=== PATIENT | female | born 1960 | race Caucasian/White ===

== ENCOUNTER 2018-10-07 18:38 | Inpatient (IN) | payer BC ==
[~2018-10-07] VITALS: Ht 162.6 cm; Wt 115.7 kg
[~2018-10-07 18:38] MED LIST: ABAT125S SQ; ACET-685 PO; ALBU2.5V12 NEB; AMOX1TAB12 PO; ASPI-484 PO; AZIT250T14 PO; BUDE0.5A3 IH; CERT400K SQ; CLAR500T3 PO; GABA300C10 PO; HYDR-3468 PO; HYDR200T5 PO; Hydrocodone/Acetaminophen PO; Ipratropium/Albuterol Sulfate IH; LEVO500T51 PO; META800T PO; PRED20TA PO; PRED5TAB17 PO; SULF500T36 PO
[2018-10-07] MEDS ORDERED: DUONEB 0.5 MG-3 MG/3 ML SOLN IH STA (18:56)
[2018-10-07] MEDS ORDERED: LASIX PO STA (18:56)
--- NOTE | 2018-10-07 18:59 | ER.PDOC ---
General Chief Complaint: Requesting Medical Care Stated Complaint: LOW O2 LEVEL Time seen by MD: 19:00 Source: patient Exam Limitations: no limitations History of Present Illness Timing/Duration: 24 hours Severity: moderate Activities at Onset: activity/exertion, rest Prior Episodes/Possible Cause: occasional episodes Modifying Factors: improves with coughing, improves with lying down, improves with oxygen, improves with rest Associated Symptoms: cough, edema Prior symptoms/Treatment: Similar symptoms previous Allergies: Coded Allergies: iodine (Verified Allergy, Severe, EXTREME HEAT, SWELLING, SNEEZING, 11/13/17 ) IV INJECTION 1975 PT VOICED BEING ABLE TO EAT SHELLFISH sulfadiazine (Verified Allergy, Severe, DIFFICULTY BREATHING, LOW O2 STATS , 11/13/17) Home Meds Active Scripts Budesonide (PULMICORT) 0.5 Mg/2 Ml Ampul.neb, 0.5 MG IH BID, #30 Prov:OZZIE LEUNG MD 10/17/14 Reported Medications Hydroxychloroquine Sulfate (HYDROXYCHLOROQUINE SULFATE) 200 Mg Tablet, 1 TAB PO BID, #180 TAB 1 Refill 10/07/18 Budesonide (BUDESONIDE) 0.5 Mg/2 Ml Ampul.neb, 1 VIAL NEB BID, #120 MILLILITER 3 Refills 10/07/18 Lansoprazole (LANSOPRAZOLE) 30 Mg Capsule.dr, 1 CAP PO DAILY, #30 CAP 5 Refills 10/07/18 Metaxalone (SKELAXIN) 800 Mg Tablet, 1 TAB PO TID, #30 TAB 10/07/18 Gabapentin (GABAPENTIN) 300 Mg Capsule, 1 CAP PO TID, #90 CAP 5 Refills 10/07/18 Aspirin (ASPIR 81) 81 Mg Tablet.dr, 1 TAB PO DAILY, #30 TAB 11/17/17 Albuterol Sulfate (ALBUTEROL SULFATE) 2.5 Mg/0.5 Ml Vial.neb, 1 VIAL NEB Q6 PRN for SHORTNESS OF BREATH, #120 VIAL 5 Refills 11/13/17 Certolizumab Pegol (CIMZIA) 400 Mg Kit, 200 MG SQ EVERY 28 DAYS, KIT 11/13/17 Prednisone (PREDNISONE) 5 Mg Tab.ds.pk, 5 MG PO DAILY24 11/13/17 Metaxalone (METAXALONE) 800 Mg Tablet, 800 MG PO TID PRN for PAIN, TABLET 05/10/14 Discontinued Reported Medications Gabapentin (GABAPENTIN) 300 Mg Capsule, 1 CAP PO DAILY24, #90 CAP 5 Refills 11/13/17 Hydroxychloroquine Sulfate (HYDROXYCHLOROQUINE SULFATE) 200 Mg Tablet, 1 TAB PO BID, #180 TAB 1 Refill 05/10/14 Past Medical History LMP (females 10-50): postmenopause Reviewed Nursing Reviewed: Vital Signs, Abn. 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 NML as Tested, No Motor/Sensory Deficits, Alert, Normal Mood/Affect, Oriented x 3 Skin: Normal Color, Warm/Dry Lymphatic: No Adenopathy Results/Orders Results/Orders Laboratory Tests Test 10/07/18 19:05 White Blood Count 8.9 10^3/uL (4.5-11.0) Red Blood Count 5.30 10^6/uL (4.00-5.20) Hemoglobin 16.5 g/dL (12.0-15.0) Hematocrit 48.6 % (36.0-46.0) Mean Corpuscular Volume 91.7 fL (78-100) Mean Corpuscular Hemoglobin 31.1 pg (26-34) Mean Corpuscular Hemoglobin Concent 34.0 g/dL (33-37) Red Cell Distribution Width 15.0 % (11.5-14.5) Platelet Count 263 10^3/uL (150-400) Mean Platelet Volume 9.4 fL (7.8-11.0) Neutrophils (%) (Auto) 41.2 % (41.0-85.0) Lymphocytes (%) (Auto) 43.0 % (24.0-44.0) Monocytes (%) (Auto) 11.3 % (5.0-12.0) Neutrophils # (Auto) 3.7 10^3/uL (1.8-7.7) Lymphocytes # (Auto) 3.8 10^3/uL (1.0-4.8) Monocytes # (Auto) 1.0 10^3/uL (0.3-0.8) Absolute Immature Granulocyte (auto 0.01 10^3 u/L (0-2) Eosinophils % 3.7 % (0.0-5.0) Basophils % 0.7 % (0.0-0.2) Basophils # 0.1 10^3/uL (0.0-0.1) Eosinophil Count 0.3 10^3/uL (0.0-0.2) Sodium Level 137 mmol/L (132-145) Potassium Level 3.9 mmol/L (3.6-5.2) Chloride Level 102.0 mmol/L (96-109) Carbon Dioxide Level 26.3 mmol/L (20.0-32) Anion Gap 12.6 Blood Urea Nitrogen 14 mg/dL (7-18) Creatinine 0.70 mg/dL (0.59-1.40) Estimated GFR () 105.1 (>/=60) BUN/Creatinine Ratio 20.0 Glucose Level 89 mg/dL (70-110) Calcium Level 9.0 mg/dL (8.4-10.5) Total Bilirubin 0.4 mg/dL (0.2-1.0) Aspartate Amino Transf (AST/SGOT) 19 U/L (0-35) Alanine Aminotransferase (ALT/SGPT) 29 U/L (12-78) Alkaline Phosphatase 76 U/L (50-136) Total Creatine Kinase 61 U/L (26-192) Troponin I < 0.02 ng/mL (0.00-0.05) Pro-B-Type Natriuretic Peptide 31 pg/mL (0-125) Total Protein 7.8 g/dL (6.4-8.2) Albumin 3.4 g/dL (3.4-5.0) Globulin 4.4 Percent Immature Gran (Cell Imm) 0.10 % (0.00-0.50) Helicobacter pylori Screen NEGATIVE (NEGATIVE) Administered Medications Medications (Trade) Dose Ordered Sig/Tristan Route PRN Reason Start Time Stop Time Status Last Admin Dose Admin Albuterol/ Ipratropium (Duoneb 0.5 Mg-3 Mg/3 ml Soln) 3 ml STAT STAT IH 10/07/18 18:56 10/07/18 18:58 DC 10/07/18 19:21 Dexamethasone Sodium Phosphate (Decadron) 10 mg STAT STAT IV 2/27/19 19:25 10/07/18 19:27 DC 10/07/18 20:20 Diphenhydramine HCl (Benadryl) 50 mg STAT STAT IV 10/07/18 19:44 10/07/18 19:45 DC 10/07/18 20:20 Furosemide (Lasix) 20 mg STAT STAT IV 10/07/18 20:07 10/07/18 20:08 DC 10/07/18 20:21 Progress Progress discussed case with dr pedroza EKG/XRAY/CT/US EKG: NSR EKG Comments: 74 Course Vitals & review Data Vital Sign - Last 24 Hours 10/07/18 10/07/18 10/07/18 10/07/18 18:41 18:41 19:22 19:26 Temp 98.9 98.9 98.9 98.9 Pulse 86 86 87 78 Resp 24 24 18 18 Pulse Ox 89 89 97 O2 Delivery Room Air 10/07/18 10/07/18 10/07/18 10/07/18 20:21 21:54 22:00 22:01 Pulse 83 79 Resp 22 18 20 B/P (MAP) 124/67 Pulse Ox 94 94 O2 Delivery Nasal Canula O2 Flow Rate 2.00 10/07/18 10/07/18 22:03 22:11 Pulse 81 81 Resp 20 20 Pulse Ox 93 93 O2 Delivery Nasal Cannula O2 Flow Rate 2.00 Laboratory Tests Test 10/07/18 19:05 White Blood Count 8.9 10^3/uL Red Blood Count 5.30 10^6/uL Hemoglobin 16.5 g/dL Hematocrit 48.6 % Mean Corpuscular Volume 91.7 fL Mean Corpuscular Hemoglobin 31.1 pg Mean Corpuscular Hemoglobin Concent 34.0 g/dL Red Cell Distribution Width 15.0 % Platelet Count 263 10^3/uL Mean Platelet Volume 9.4 fL Neutrophils (%) (Auto) 41.2 % Lymphocytes (%) (Auto) 43.0 % Monocytes (%) (Auto) 11.3 % Neutrophils # (Auto) 3.7 10^3/uL Lymphocytes # (Auto) 3.8 10^3/uL Monocytes # (Auto) 1.0 10^3/uL Absolute Immature Granulocyte (auto 0.01 10^3 u/L Eosinophils % 3.7 % Basophils % 0.7 % Basophils # 0.1 10^3/uL Eosinophil Count 0.3 10^3/uL Sodium Level 137 mmol/L Potassium Level 3.9 mmol/L Chloride Level 102.0 mmol/L Carbon Dioxide Level 26.3 mmol/L Anion Gap 12.6 Blood Urea Nitrogen 14 mg/dL Creatinine 0.70 mg/dL Estimated GFR () 105.1 BUN/Creatinine Ratio 20.0 Glucose Level 89 mg/dL Calcium Level 9.0 mg/dL Total Bilirubin 0.4 mg/dL Aspartate Amino Transf (AST/SGOT) 19 U/L Alanine Aminotransferase (ALT/SGPT) 29 U/L Alkaline Phosphatase 76 U/L Total Creatine Kinase 61 U/L Troponin I < 0.02 ng/mL Pro-B-Type Natriuretic Peptide 31 pg/mL Total Protein 7.8 g/dL Albumin 3.4 g/dL Globulin 4.4 Percent Immature Gran (Cell Imm) 0.10 % Helicobacter pylori Screen NEGATIVE Departure Time of Disposition: 20:05 Disposition: 09 ADMITTED INPATIENT Impression: Primary Impression: Respiratory failure with hypoxia Condition: Critical Referrals: KATINA FRIEDMAN ESCAPEMENT MAKER (PCP) PRIMARY CARE PROVIDER Duration or Time Spent with Pa: 25 RADHA MONTES MD Oct 07, 2018 18:59 SCOTT BLANCHARD MD Oct 07, 2018 22:05
[2018-10-07 19:10] LABS: BASOPHIL # 0.1 10^3/uL (0.0-0.1); BASOPHIL % 0.7 % (0.0-0.2); EOSINOPHIL # 0.3 10^3/uL (0.0-0.2); EOSINOPHIL % 3.7 % (0.0-5.0); HEMOGLOBIN 16.5 g/dL (12.0-15.0); LYMPHOCYTES # 3.8 10^3/uL (1.0-4.8); MEAN CELL HGB 31.1 pg (26-34); MEAN CORP VOLUME 91.7 fL (78-100); MEAN PLATELET VOLUME 9.4 fL (7.8-11.0); MONOCYTES % 11.3 % (5.0-12.0); NEUTROPHIL # 3.7 10^3/uL (1.8-7.7); NEUTROPHILS % 41.2 % (41.0-85.0); WHITE BLOOD CELL 8.9 10^3/uL (4.5-11.0)
[2018-10-07] MEDS ORDERED: DUONEB 0.5 MG-3 MG/3 ML SOLN IH ONE ×2 (19:15→21:54)
[2018-10-07] MEDS ORDERED: DECADRON IV STA (19:25)
--- NOTE | 2018-10-07 19:26 | DIREP ---
PROCEDURE:CHEST 2 VIEWS COMPARISON:[facility], CR, CHEST 2 VIEW, 09/11/2011, 03:57 PM. [facility], CR, CHEST 2 VIEW, 05/09/2014, 02:14 PM. [facility], [place], XRAY CHEST 2 VWS, 11/13/2017, 04:13 PM. INDICATIONS:dyspnea, cough, rales FINDINGS: LUNGS/PLEURA:Interstitial prominence throughout. Findings similar to previous, no focal consolidation VASCULATURE:Normal. Unremarkable pulmonary vasculature. CARDIAC:Normal. No cardiac silhouette abnormality or cardiomegaly. MEDIASTINUM:Normal. No visible mass or adenopathy. BONES:Normal. No fracture or visible bony lesion. OTHER:Negative. CONCLUSION:Chronic interstitial prominence, likely due to mild fibrosis. No focal consolidation, or acute process identified. Mild edema, or subtle atypical pneumonia cannot be excluded given the underlying pattern Dictated by: González Martell MD on 10/07/2018 at 07:24 PM
[2018-10-07 19:38] LABS: ALANINE AMINOTRANSFERASE(ML) 29 U/L (12-78); ALKALINE PHOSPHATASE 76 U/L (50-136); ASPARTATE AMINO TRANSFERASE 19 U/L (0-35); CARBON DIOXIDE 26.3 mmol/L (20.0-32); GLUCOSE 89 mg/dL (70-110)
--- NOTE | 2018-10-07 19:38 | PCM.EKG ---
[facility] Test Date: 2018-10-07 Test Time: 19:30:31 Pat Name: FIDELIA PATINO Department: Room: Gender: F Map Clerk: STEPHANIE : 1960 Requested By: RADHA MONTES Order Number: [id number] Reading MD: Milton Huitron Measurements Intervals Finley Rate: 74 P: 25 VT: 176 QRS: 70 QRSD: 76 T: 54 QT: 414 QTc: 459 Interpretive Statements Normal sinus rhythm Normal ECG No previous ECG available for comparison Electronically Signed On 10-07-2018 22:23:51 MANAGER INTERNAL by Milton Huitron Please click the below link to view image of tracing.
[2018-10-07] MEDS ORDERED: BENADRYL IV STA (19:44)
[2018-10-07] MEDS ORDERED: LASIX ONE (20:07)
[2018-10-07] MEDS ORDERED: LASIX IV STA (20:07)
[2018-10-07] MEDS ORDERED: BENADRYL ONE (20:07)
[2018-10-07] MEDS ORDERED: DECADRON ONE (20:08)
--- NOTE | 2018-10-07 21:48 | DIREP ---
PROCEDURE:CT PULMONARY ANGIOGRAM TECHNIQUE:Following the intravenous administration of contrast material, axial cuts were obtained through the chest. Multiplanar / 3-D reconstructions are provided. Pulmonary arterial contrast opacification was satisfactory. The images were viewed at lung and soft tissue settings. Delayed images to the abdomen pelvis and thighs are submitted COMPARISON:[facility], CT, CT CHEST W/O, 01/16/2015, 01:57 PM. INDICATIONS:dyspnea with hx of pe FINDINGS: PULMONARY ARTERIES:Nondiagnostic bolus. LUNGS:Minimal regions of dependent atelectasis. The central airways are patent. Mild regions of pulmonary fibrosis. Stable peripheral nodules, largest measuring 6 mm, stable when compared with previous examination CARDIAC:Normal size heart and normal pulmonary vascularity. THYROID:Normal. THORACIC AORTA:Normal. MEDIASTINUM:Normal. PLEURA:Normal. BONES:Normal. Cholecystectomy. No focal liver lesions. Spleen , pancreas and adrenals are unremarkable. Atherosclerotic changes of the infrarenal aorta without aneurysm. Hysterectomy. Scattered sigmoid diverticula. No free air. No bowel obstruction. No abscess. Hysterectomy No pelvic or thigh DVT is seen unremarkable. CONCLUSION:No pulmonary emboli. No pelvic or thigh DVT. Stable interstitial lung disease with regions of fibrosis, stable nodules. Superimposed mild dependent atelectasis. Dictated by: González Martell MD on 10/07/2018 at 09:41 PM
[2018-10-07 21:54] VITALS: BP 127/44
--- NOTE | 2018-10-07 22:02 | NUR ---
KAVITHA BLANCHARD ON PHONE WITH DR. PLUMMER
[2018-10-07] MEDS ORDERED: GABA300C10 PO (22:17)
[2018-10-07] MEDS ORDERED: [UNRECOGNIZED DRUG - CODE] PO (22:17)
[2018-10-07] MEDS ORDERED: HYDR200T5 PO (22:17)
[2018-10-07] MEDS ORDERED: LANS30CA PO (22:17)
[2018-10-07] MEDS ORDERED: BUDE0.5A NEB (22:17)
[2018-10-07 23:19] VITALS: BP 124/42
[2018-10-08 04:28] VITALS: BP 116/65
[2018-10-08] MEDS: DUONEB 0.5 MG-3 MG/3 ML SOLN IH SCH ×3 (09:00→20:40)
--- NOTE | 2018-10-08 09:00 | PCM.HP ---
HISTORY & PHYSICAL HISTORY & PHYSICAL DATE OF ADMISSION: CHIEF COMPLAINT: 57 yo female with severe RA and SHAZIA comes in with several weeks of progressive SOB and hypoxia, much worse with exertion. She has Interstitial Lung Disease secondary to her RA She takes Golimumab infusions every several months at her [employer] [facility] office in [place]. She has noticed a correlation between these infusions, and getting more SOB within 2 weeks of the drug being administered. She has wheezing, fatigue, and severe SOB with any exertion. She has been checking her pulse oximetry over the last week and her level decreases into the 70's whenever she exerts herself. She came to [facility] yesterday for much worse SOB, wheezing, and decreased O2 level. CT also shows possible atypical pneumonia. Admit for IV corticosteroids, IV Azithromycin, Duoneb Tx, Pulmonary hygiene. H&P #[id number] HISTORY OF PRESENT ILLNESS: ALLERGIES: CURRENT MEDICATIONS: PAST MEDICAL HISTORY: SOCIAL HISTORY: FAMILY HISTORY: REVIEW OF SYSTEMS: PHYSICAL EXAMINATION: GENERAL: VITAL SIGNS: HEENT: NECK: LUNGS: HEART: ABDOMEN: EXTREMITIES: NEUROLOGIC: LABORATORY DATA: IMPRESSION: CARE PLAN: JARRETT PLUMMER MD Oct 08, 2018 09:00
[2018-10-08 09:15] VITALS: BP 116/63
[2018-10-08] MEDS ORDERED: ALBU2.5V12 NEB (09:20)
[2018-10-08] MEDS: PROTONIX PO SCH (09:21)
[2018-10-08] MEDS: SOLU-MEDROL IV SCH ×4 (09:21→20:58)
[2018-10-08] MEDS ORDERED: DUONEB 0.5 MG-3 MG/3 ML SOLN IH ONE (09:38)
--- NOTE | 2018-10-08 09:50 | NUR ---
DISCHARGE PLAN CASE MANAGEMENT VISITED WITH PATIENT CONCERNING DISCHARGE PLAN AND NEEDS. LIVES AT HOME WITH . INDEPENDENT OF ADLS. HAS HOME OXYGEN THROUGH [employer]. DENIES NEED FOR DME. REFUSED HOME HEALTH AND OUTPATIENT SERVICES. DR. PLUMMER IS PCP. HAS FINANCIAL ABILITY TO PAY FOR MEDICATIONS UPON DISCHARGE IF NEEDED. DISCHARGE GOAL IS TO DISCHARGE HOME WITH AND CONTINUE SELF CARE. DENIES FURTHER NEEDS AT THIS TIME.
--- NOTE | 2018-10-08 11:50 | HPH ---
ADMIT DATE: CHIEF COMPLAINT: Shortness of breath and hypoxia. HISTORY OF PRESENT ILLNESS: This is a 57-year-old female with multiple medical problems including rheumatoid arthritis, chronic immunosuppression, and interstitial lung disease who presents to the Emergency Room at [facility] for worsening shortness of breath and low oxygen levels. She has had rheumatoid arthritis for many years and has been on multiple different medications for this. Most recently, she is on golimumab infusions that she gets every several months. She had previously felt like she was tolerating these infusions well. However, over the last two infusions, she has noticed that approximately 2 weeks after the infusion, she develops slowly progressive shortness of breath that is worse than her baseline. She has interstitial lung disease as a function of her rheumatoid arthritis and has seen a seasoner hand in the past, but currently does not have one. She has been on oxygen at nighttime for several years, but has not needed it during the day. She has noticed that after her infusions, she gets much worsening shortness of breath with exertion and her oxygen level drops to the 70s on pulse oximeter once she sits down from exertion. She has been forced to wear her oxygen more during the day, but does not know how much she needs to wear at those times and is not always able to check her pulse oximeter level. She is a current smoker and states she smokes 5-10 cigarettes per day. She states she takes her oxygen off during these times. She has also been told she may have obstructive sleep apnea, but she has never been formally evaluated for this. PAST MEDICAL HISTORY: 1. Interstitial lung disease. 2. Rheumatoid arthritis. 3. Chronic immunosuppression. 4. Gastroesophageal reflux disease. 5. Hypertension. 6. Peripheral neuropathy. 7. Morbid obesity. 8. Reactive airway disease/chronic obstructive pulmonary disease. 9. Chronic lower extremity edema. MEDICATIONS: See admit medication reconciliation form. PAST SURGICAL HISTORY: Reviewed. SOCIAL HISTORY: Alcohol -- None. Tobacco -- one half pack per day x 45 years. Denies recreational drugs. The patient lives with her in [place]. She is retired. ALLERGIES: IODINE and SULFADIAZINE. REVIEW OF SYSTEMS: GENERAL: Overall increase in weakness, fatigue and malaise over the last several weeks. CARDIAC: Denies chest pain, orthopnea, PND or palpitations. RESPIRATORY: Shortness of breath worsening and slight worsening of cough as well. No hemoptysis. No history of tuberculosis. GASTROINTESTINAL: No nausea, vomiting, diarrhea or constipation. No history of hepatitis. GENITOURINARY: Denies dysuria, frequency, hematuria or nocturia. HEMATOLOGIC: No easy bleeding or bruising. ENDOCRINE: No recent weight loss or weight gain. No temperature intolerance. NEUROLOGIC: Denies headache, paresthesias or dizziness. MUSCULOSKELETAL: Overall increase in weakness of muscle groups. PSYCHIATRIC: Denies depression or anxiety. OBJECTIVE: VITAL SIGNS: Temperature 98.9, pulse 86, respirations 24, pulse oximeter 89% on room air. GENERAL: This is a morbidly obese female in no acute distress. She has a pickwickian body habitus. HEENT: Atraumatic, normocephalic. Sclerae are clear and anicteric. Oral mucosa is moist. NECK: Neck is very short, supple, nontender, no nodes felt. No bruits. No adenopathy. CHEST: Decreased breath sounds bilaterally with mild crackles at bilateral bases. HEART: Regular rate and rhythm without murmurs, S3 or S4. ABDOMEN: Soft, nontender, nondistended. Positive bowel sounds. No masses felt. EXTREMITIES: Warm and well perfused without evidence of edema, cyanosis or clubbing. Mild ulnar deviation of both hands. NEUROLOGIC: Cranial nerves 2-12 are grossly intact and symmetric. SKIN: Intact. LABORATORY DATA: WBC 8.9, hemoglobin 16.5, hematocrit 48.6, platelets 263. Sodium 137, potassium 3.9, chloride 102, BUN 14, creatinine 0.7. Glucose 89, calcium 9.0, total bilirubin 0.4, AST 19, ALT 29, CK 61. Troponin I less than 0.02. ProBNP 31. IMAGING: Chest x-ray -- "chronic interstitial prominence, likely due to mild fibrosis, mild edema, atypical pneumonia cannot be excluded." CTA -- "no pulmonary emboli. Interstitial lung disease with fibrosis, stable nodules, atelectasis." IMPRESSION: 1. Shortness of breath. 2. Hypoxia. 3. 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 4. Possible atypical pneumonia. 5. Erythrocytosis. 6. Morbid obesity. 7. Continued tobacco use. 8. Chronic obstructive pulmonary disease. 9. Rheumatoid arthritis. 10. Hypertension. PLAN: 1. The patient is admitted to [facility] for further evaluation and management. 2. We will start her on albuterol and ipratropium nebulizer treatments as well as intravenous corticosteroids with methylprednisolone, which should help the autoimmune component of her lung disease. She needs to remain on oxygen 24 hours a day at this point as this is the only thing that is proven to help with interstitial lung disease. 3. Possible atypical pneumonia, which would also explain worsening findings, so we will start IV azithromycin every 24 hours. 4. The patient's smoking is certainly contributing to this and I counseled her extensively on smoking cessation. Nicotine patch if needed. Chronic obstructive pulmonary disease thus definitely a component, but she will be getting all appropriate treatment as mentioned above. 5. She absolutely needs a sleep study done as an outpatient once she is over this acute episode. 6. Resume previous home medications. 7. Deep venous thrombosis and stress ulcer prophylaxis. 8. Needs aggressive pulmonary hygiene with incentive spirometer and increased ambulation. Santos Blanco MD DR: MULUGETA/carmen JOB# [id number]
[2018-10-08] MEDS ORDERED: NS 250ML 250 ML IV ONE (12:25)
[2018-10-08] MEDS: ZITHROMAX 500 MG in NS 250ML 250 ML IV SCH (12:35)
[2018-10-08] MEDS ORDERED: DUONEB 0.5 MG-3 MG/3 ML SOLN IH SCH (15:00)
[2018-10-08 15:28] VITALS: BP 117/61
[2018-10-08 19:42] VITALS: BP 100/59
[2018-10-08] MEDS: PLAQUENIL PO SCH (20:58)
[2018-10-08] MEDS: NEURONTIN PO SCH (20:58)
[2018-10-08] MEDS ORDERED: SKELAXIN PO SCH (21:00)
[2018-10-08] MEDS: NICOTINE 21MG PATCH TD SCH (22:20)
--- NOTE | 2018-10-08 22:24 | NUR ---
Nicotine patch Placed to the right upper arm TD
[2018-10-08 23:09] VITALS: BP 131/62
[2018-10-09] MEDS: SOLU-MEDROL IV SCH ×4 (03:43→21:08)
[2018-10-09 03:55] VITALS: BP 118/65
[2018-10-09 05:12] LABS: HEMOGLOBIN 15.5 g/dL (12.0-15.0); MEAN CELL HGB 30.7 pg (26-34); MEAN CORP VOLUME 92.9 fL (78-100); MEAN PLATELET VOLUME 9.8 fL (7.8-11.0); RED CELL DISTRIBUTION WIDTH 14.7 % (11.5-14.5); WHITE BLOOD CELL 18.3 10^3/uL (4.5-11.0)
[2018-10-09 05:45] LABS: CALCIUM 8.9 mg/dL (8.4-10.5); CARBON DIOXIDE 28.4 mmol/L (20.0-32)
--- NOTE | 2018-10-09 07:07 | PRM.PN ---
Subjective Subjective Date: Oct 09, 2018 Time: 07:06 Subjective Stable overnight. Intermittent coughing. SOB slowly improving. Had more problems overall with SOB however with exertion. Tried walking in [place] and got very lightheaded. O2 dropped to the 60's. Patient History: Asthma 32 MOTHER, , Age:75 33 FATHER, , Age:73 Bone cancer G8 BROTHER, , Age:68 Cerebrovascular disorder MATERNAL GRANDMOTHER, Chronic obstructive pulmonary disease 32 MOTHER, , Age:75 33 FATHER, , Age:73 FH: colon cancer G8 BROTHER, , Age:68 FH: obesity G8 BROTHER, , Age:42 Hypertension 32 MOTHER, , Age:73 G8 SISTER No known health problems 19 CHILD 19 CHILD No Family History of: Alzheimer's disease Congestive heart failure Diabetes insipidus Diabetes mellitus Parkinson's disease VTE VTE Risk Total Score: 2 VTE Risk Score VTE Risk: Score 0-1 = Low Risk (Aggressive mobilization; early ambulation; no VTE prophylaxis required) Score 2: Moderate Risk (Intermittent/Pneumatic Compression Device OR Lovenox/Heparin/Coumadin) Score 3-4: High Risk (Intermittent/Pneumatic Compression Device AND Lovenox/Heparin/Coumadin) Score > or =5: Highest Risk (Intermittent/Pneumatic Compression Device AND Lovenox/Heparin/Coumadin) Review of Systems Constitutional: Weakness; No: Fever, Chills, Sweats, Malaise, Other Respiratory: Cough, Shortness of breath, SOB with excertion; No: Dry, Wheezing , Hemoptysis, Pleuritic Pain, Sputum, Wheezing, Other Cardiovascular: No: Chest Pain, Palpitations, Orthopnea, Paroxysmal Noc. Dyspnea, Edema, Lt Headedness, Other Gastrointestinal: No: Nausea, Vomiting, Abdominal Pain, Diarrhea, Constipation , Melena, Hematochezia, Other Genitourinary: No Dysuria, No Frequency, No Incontinence, No Hematuria, No Retention, No Other Neurological: Weakness; No: Numbness, Incoordination, Change in speech, Confusion, Seizures, Other Allergies: Coded Allergies: iodine (Verified Allergy, Severe, EXTREME HEAT, SWELLING, SNEEZING, 11/13/17 ) IV INJECTION 1974 PT VOICED BEING ABLE TO EAT SHELLFISH sulfadiazine (Verified Allergy, Severe, DIFFICULTY BREATHING, LOW O2 STATS , 11/13/17) Scheduled Albuterol Sulfate (Albuterol Sulfate), 1 VIAL NEB BID, (Reported) Aspirin (Aspir 81), 1 TAB PO DAILY, (Reported) Budesonide (Pulmicort), 0.5 MG IH BID Budesonide (Budesonide), 1 VIAL NEB BID, (Reported) Gabapentin (Gabapentin), 1 CAP PO TID, (Reported) Hydroxychloroquine Sulfate (Hydroxychloroquine Sulfate), 1 TAB PO BID, (Reported ) Lansoprazole (Lansoprazole), 1 CAP PO DAILY, (Reported) Scheduled PRN Albuterol Sulfate (Albuterol Sulfate), 1 VIAL NEB Q6 PRN for SHORTNESS OF BREATH , (Reported) Metaxalone (Metaxalone), 800 MG PO TID PRN for PAIN, (Reported) Discontinued Medications Certolizumab Pegol (Cimzia), 200 MG SQ EVERY 28 DAYS, (Reported) Discontinued Reason: No Longer Taking Gabapentin (Gabapentin), 1 CAP PO DAILY24, (Reported) Discontinued Reason: Cancel Hydroxychloroquine Sulfate (Hydroxychloroquine Sulfate), 1 TAB PO BID, (Reported ) Discontinued Reason: Discontinue Prednisone (Prednisone), 5 MG PO DAILY24, (Reported) Discontinued Reason: No Longer Taking Objective Vitals and I/O Vital Sign - Last 24 Hours 10/08/18 10/08/18 10/08/18 10/08/18 08:34 09:15 09:43 09:47 Temp 98.5 98.5 Pulse 72 75 76 63 Resp 14 18 16 14 B/P (MAP) 116/63 (80) Pulse Ox 91 95 94 O2 Delivery Nasal Canula O2 Flow Rate 2.50 2.00 FiO2 30 10/08/18 10/08/18 10/08/18 10/08/18 11:12 14:18 14:22 15:28 Temp 98.3 98.3 Pulse 82 88 87 Resp 14 14 18 B/P (MAP) 117/61 (79) Pulse Ox 93 93 O2 Delivery Nasal Cannula Nasal Canula O2 Flow Rate 2.00 2.00 10/08/18 10/08/18 10/08/18 10/08/18 18:45 19:42 19:43 20:40 Temp 97.8 97.8 Pulse 96 66 60 Resp 18 18 18 B/P (MAP) 100/59 (73) Pulse Ox 96 93 O2 Delivery Nasal Cannula Nasal Canula Nasal Cannula O2 Flow Rate 2.50 2.50 2.50 FiO2 30 10/08/18 10/08/18 10/09/18 20:47 23:09 03:55 Temp 97.6 98.5 97.6 98.5 Pulse 60 76 78 Resp 18 20 18 B/P (MAP) 131/62 (85) 118/65 (82) Pulse Ox 93 O2 Delivery Nasal Canula Nasal Canula O2 Flow Rate 2.50 2.50 Intake and Output 10/08/18 10/08/18 10/09/18 15:00 23:00 07:00 Intake Total 240 ml 250 ml 1300 ml Output Total 700 ml Balance 240 ml 250 ml 600 ml General: Alert, Oriented X3, Cooperative, No acute distress Neck: Supple, No JVD Lungs: Clear to auscultation, Other (Decreased BS at the R base.) Heart: Regular rate, Normal S1, Normal S2, No murmurs Abdomen: Normal bowel sounds, Soft, No tenderness, No masses Extremities: No clubbing, No cyanosis, No edema, Normal pulses, No tenderness/ swelling Neuro: Normal gait, Normal speech, Strength at 5/5 X4 ext, Normal tone, Sensation intact Psych/Mental Status: Mental status NL, Mood NL All Results(Lab/Rad) Laboratory Tests Test 10/09/18 05:00 White Blood Count 18.3 10^3/uL Red Blood Count 5.05 10^6/uL Hemoglobin 15.5 g/dL Hematocrit 46.9 % Mean Corpuscular Volume 92.9 fL Mean Corpuscular Hemoglobin 30.7 pg Mean Corpuscular Hemoglobin Concent 33.0 g/dL Red Cell Distribution Width 14.7 % Platelet Count 261 10^3/uL Mean Platelet Volume 9.8 fL Sodium Level 141 mmol/L Potassium Level 4.5 mmol/L Chloride Level 104.0 mmol/L Carbon Dioxide Level 28.4 mmol/L Anion Gap 13.1 Blood Urea Nitrogen 15 mg/dL Creatinine 0.84 mg/dL Estimated GFR () 85.2 BUN/Creatinine Ratio 17.0 Glucose Level 128 mg/dL Hemoglobin A1c 5.2 % Calcium Level 8.9 mg/dL Total Bilirubin 0.2 mg/dL Aspartate Amino Transf (AST/SGOT) 16 U/L Alanine Aminotransferase (ALT/SGPT) 29 U/L Alkaline Phosphatase 64 U/L Total Protein 7.2 g/dL Albumin 3.1 g/dL Globulin 4.1 Thyroid Stimulating Hormone (TSH) 0.084 mIU/mL Current Medications Medications (Trade) Dose Ordered Sig/Tristan Route PRN Reason Start Time Stop Time Status Last Admin Dose Admin Furosemide (Lasix) 40 mg STAT STAT PO 10/07/18 18:56 10/07/18 18:58 DC Albuterol/ Ipratropium (Duoneb 0.5 Mg-3 Mg/3 ml Soln) 3 ml STAT STAT IH 10/07/18 18:56 10/07/18 18:58 DC 10/07/18 19:21 Albuterol/ Ipratropium (Duoneb 0.5 Mg-3 Mg/3 ml Soln) 3 ml STK-MED ONCE IH 10/07/18 19:15 10/07/18 19:17 DC Dexamethasone Sodium Phosphate (Decadron) 10 mg STAT STAT IV 10/07/18 19:25 10/07/18 19:27 DC 10/07/18 20:20 Diphenhydramine HCl (Benadryl) 50 mg STAT STAT IV 10/07/18 19:44 10/07/18 19:45 DC 10/07/18 20:20 Furosemide (Lasix) 20 mg STAT STAT IV 10/07/18 20:07 10/07/18 20:08 DC 10/07/18 20:21 Furosemide (Lasix) 20 mg STK-MED ONCE .ROUTE 10/07/18 20:07 10/07/18 20:09 DC Diphenhydramine HCl (Benadryl) 50 mg STK-MED ONCE .ROUTE 10/07/18 20:07 10/07/18 20:09 DC Dexamethasone Sodium Phosphate (Decadron) 4 mg STK-MED ONCE .ROUTE 10/07/18 20:08 10/07/18 20:10 DC Albuterol/ Ipratropium (Duoneb 0.5 Mg-3 Mg/3 ml Soln) 3 ml STK-MED ONCE IH 10/07/18 21:54 10/07/18 21:56 DC Pantoprazole Sodium (Protonix) 40 mg DAILY PO 10/08/18 09:00 3/30/19 08:59 10/08/18 09:21 Methylprednisolone Sodium Succinate (Solu-Medrol) 60 mg Q6 IV 10/08/18 07:00 10/08/18 13:44 DC 10/08/18 09:21 Albuterol/ Ipratropium (Duoneb 0.5 Mg-3 Mg/3 ml Soln) 3 ml RTTID IH 10/08/18 15:00 10/08/18 15:00 DC 10/08/18 09:43 Albuterol/ Ipratropium (Duoneb 0.5 Mg-3 Mg/3 ml Soln) 3 ml STK-MED ONCE IH 10/08/18 09:38 10/08/18 09:40 DC Albuterol/ Ipratropium (Duoneb 0.5 Mg-3 Mg/3 ml Soln) 3 ml RTTID IH 10/08/18 09:00 11/07/18 08:59 10/08/18 20:40 Azithromycin 500 mg/Sodium Chloride 250 ml @ 175 mls/hr Q24HRS IV 10/08/18 11:30 11/07/18 11:29 10/08/18 12:35 Sodium Chloride 250 ml @ ud STK-MED ONCE IV 10/08/18 12:25 10/08/18 12:27 DC Methylprednisolone Sodium Succinate (Solu-Medrol) 60 mg Q6H IV 10/08/18 15:00 11/07/18 14:59 10/09/18 03:43 Aspirin (Aspirin Ec) 81 mg DAILY PO 10/09/18 09:00 11/08/18 08:59 Gabapentin (Neurontin) 300 mg TID PO 10/08/18 21:00 11/07/18 20:59 10/08/18 20:58 Metaxalone (Skelaxin) 800 mg TID PO 10/08/18 21:00 10/08/18 21:00 DC Metaxalone (Skelaxin) 800 mg TID PRN PO PAIN 10/08/18 18:00 11/07/18 17:59 Hydroxychloroquine Sulfate (Plaquenil) 200 mg BID PO 10/08/18 21:00 11/07/18 20:59 10/08/18 20:58 Nicotine (Nicotine 21mg Patch) 1 each DAILY TD 10/08/18 22:30 11/07/18 22:29 10/08/18 22:20 Course Sepsis Screening Results: Posi: NEGATIVE Sepsis Qualifier/Stage: NO DEFINITE RISK Duration or Total Time Spent w: 25 Vitals & review Data Vital Sign - Last 24 Hours 10/07/18 10/07/18 10/07/18 10/07/18 18:41 18:41 19:22 19:26 Temp 98.9 98.9 98.9 98.9 Pulse 86 86 87 78 Resp 24 24 18 18 Pulse Ox 89 89 97 O2 Delivery Room Air 10/07/18 10/07/18 10/07/18 10/07/18 20:21 21:54 22:00 22:01 Pulse 83 79 Resp 22 18 20 B/P (MAP) 124/67 Pulse Ox 94 94 O2 Delivery Nasal Canula O2 Flow Rate 2.00 10/07/18 10/07/18 22:03 22:11 Pulse 81 81 Resp 20 20 Pulse Ox 93 93 O2 Delivery Nasal Cannula O2 Flow Rate 2.00 Laboratory Tests Test 10/07/18 19:05 White Blood Count 8.9 10^3/uL Red Blood Count 5.30 10^6/uL Hemoglobin 16.5 g/dL Hematocrit 48.6 % Mean Corpuscular Volume 91.7 fL Mean Corpuscular Hemoglobin 31.1 pg Mean Corpuscular Hemoglobin Concent 34.0 g/dL Red Cell Distribution Width 15.0 % Platelet Count 263 10^3/uL Mean Platelet Volume 9.4 fL Neutrophils (%) (Auto) 41.2 % Lymphocytes (%) (Auto) 43.0 % Monocytes (%) (Auto) 11.3 % Neutrophils # (Auto) 3.7 10^3/uL Lymphocytes # (Auto) 3.8 10^3/uL Monocytes # (Auto) 1.0 10^3/uL Absolute Immature Granulocyte (auto 0.01 10^3 u/L Eosinophils % 3.7 % Basophils % 0.7 % Basophils # 0.1 10^3/uL Eosinophil Count 0.3 10^3/uL Sodium Level 137 mmol/L Potassium Level 3.9 mmol/L Chloride Level 102.0 mmol/L Carbon Dioxide Level 26.3 mmol/L Anion Gap 12.6 Blood Urea Nitrogen 14 mg/dL Creatinine 0.70 mg/dL Estimated GFR () 105.1 BUN/Creatinine Ratio 20.0 Glucose Level 89 mg/dL Calcium Level 9.0 mg/dL Total Bilirubin 0.4 mg/dL Aspartate Amino Transf (AST/SGOT) 19 U/L Alanine Aminotransferase (ALT/SGPT) 29 U/L Alkaline Phosphatase 76 U/L Total Creatine Kinase 61 U/L Troponin I < 0.02 ng/mL Pro-B-Type Natriuretic Peptide 31 pg/mL Total Protein 7.8 g/dL Albumin 3.4 g/dL Globulin 4.4 Percent Immature Gran (Cell Imm) 0.10 % Helicobacter pylori Screen NEGATIVE Sepsis Infection Criteria Pres: None LEVEL 1 SEPSIS INFECTION CRITE: Cough/Shortness of Breath Cardiovascular Evidence: Not Assessed or None Hematologic Evidence: None/Not assessed Hepatic Evidence: None/Not assessed Metabolic Evidence: None/Not assessed Neurological Evidence: None/Not assessed Respiratory Evidence: Need for O2 to keep>90%, O2 SAT<90room air Renal Evidence: None/Not assessed O2 Sat by Pulse Oximetry: 93 Respiratory End-tidal CO2: 95 Oxygen Flow Rate: 2.50 Assessment/Plan Assessment/Plan Assessment/Plan 1.) Interstitial Lung Disease - Secondary to RA.. - Cont O2 03/03. - Cont IV Corticosteroids. - Nebulizer tx. 2.) Hypoxia - Secondary to #1. - Cont tx as above. - Consider Echo. 3.) Generalized Weakness - Continue small increases in ambulation to try and improve conditioning. 4.) Increased TSH - Check FT4 in AM. 5.) Leukocytosis - Secondary to steroids. JARRETT PLUMMER MD Oct 09, 2018 07:07
[2018-10-09] MEDS: DUONEB 0.5 MG-3 MG/3 ML SOLN IH SCH ×3 (08:10→20:15)
[2018-10-09] MEDS: PLAQUENIL PO SCH ×2 (08:18→21:07)
[2018-10-09] MEDS: PROTONIX PO SCH ×2 (08:19→09:00)
[2018-10-09] MEDS: NICOTINE 21MG PATCH TD SCH (08:19)
[2018-10-09] MEDS: ASPIRIN EC PO SCH (08:19)
[2018-10-09] MEDS: NEURONTIN PO SCH ×3 (08:19→21:07)
[2018-10-09 08:27] VITALS: BP 106/51
--- NOTE | 2018-10-09 11:31 | NUR ---
DISCHARGE UPDATE DR. PLUMMER REQUESTED PATIENT TO HAVE HOME HEALTH. CM FOLLOWED UP WITH PATIENT CONCERNING HOME HEALTH. PATIENT REFUSED HOME HEALTH SERVICES. REFUSAL LETTER SIGNED AND PLACED ON CHART.
[2018-10-09 11:57] VITALS: BP 121/58
[2018-10-09] MEDS: ZITHROMAX 500 MG in NS 250ML 250 ML IV SCH (12:32)
[2018-10-09 16:41] VITALS: BP 115/70
--- NOTE | 2018-10-09 18:58 | NUR ---
Report Received report from MOUNA Marshall
[2018-10-09 20:05] VITALS: BP 123/65
[2018-10-09] MEDS: SKELAXIN PO PRN (22:01)
--- NOTE | 2018-10-09 22:01 | NUR ---
Pt took own home med of Skelaxin 800mg po.
--- NOTE | 2018-10-09 22:39 | NUR ---
Patient ambulating in hallway.
[2018-10-10 00:17] VITALS: BP 125/75
[2018-10-10] MEDS: SOLU-MEDROL IV SCH ×4 (03:16→21:19)
[2018-10-10 04:35] VITALS: BP 135/74
[2018-10-10 05:22] LABS: HEMOGLOBIN 15.6 g/dL (12.0-15.0); MEAN CELL HGB 30.6 pg (26-34); MEAN CELL HGB CONCENTRATION 32.6 g/dL (33-37); MEAN CORP VOLUME 93.7 fL (78-100); MEAN PLATELET VOLUME 9.7 fL (7.8-11.0); WHITE BLOOD CELL 16.6 10^3/uL (4.5-11.0)
[2018-10-10 05:50] LABS: CALCIUM 8.4 mg/dL (8.4-10.5); CARBON DIOXIDE 28.8 mmol/L (20.0-32)
--- NOTE | 2018-10-10 06:15 | NUR ---
Patient off floor for X Ray
--- NOTE | 2018-10-10 06:25 | NUR ---
Patient back on floor
--- NOTE | 2018-10-10 06:39 | NUR ---
Report Report given to Shonna Barroso RN
[2018-10-10 08:17] VITALS: BP 122/76
[2018-10-10] MEDS: ASPIRIN EC PO SCH (08:18)
[2018-10-10] MEDS: NEURONTIN PO SCH ×3 (08:18→20:17)
[2018-10-10] MEDS: NICOTINE 21MG PATCH TD SCH (08:19)
[2018-10-10] MEDS: PROTONIX PO SCH ×2 (08:19→09:00)
[2018-10-10] MEDS: SKELAXIN PO PRN (08:23)
[2018-10-10] MEDS: DUONEB 0.5 MG-3 MG/3 ML SOLN IH SCH ×3 (08:47→20:17)
[2018-10-10] MEDS: PLAQUENIL PO SCH ×2 (09:00→20:17)
--- NOTE | 2018-10-10 10:08 | DIREP ---
PROCEDURE:CHEST 2 VIEWS COMPARISON:[facility], CR, XRAY CHEST 2 VWS, 10/07/2018, 06:42 PM. INDICATIONS:ILD FINDINGS: LUNGS/PLEURA:Hyperinflation and chronic interstitial changes. No infiltrate or pleural effusion. CARDIAC:Normal cardiac silhouette and normal pulmonary vascularity. MEDIASTINUM:Normal. BONES:Mild thoracic spondylosis and mid thoracic wedging OTHER:No additional findings. CONCLUSION:Chronic lung disease. No acute cardiopulmonary process or significant change. Dictated by: Corina Mejias MD on 10/10/2018 at 10:06 AM
--- NOTE | 2018-10-10 10:40 | PRM.PN ---
Subjective Subjective Date: Oct 10, 2018 Time: 10:38 Subjective Doing ok this AM. SOB and wheezing slowly improving. Wheezing better during the night. Energy slowly improving as is her hypoxia. Ambulation and hypoxia with ambulation also continues to slowly improve. No other overnight events. Patient History: Asthma 32 MOTHER, , Age:73 33 FATHER, , Age:73 Bone cancer G8 BROTHER, , Age:68 Cerebrovascular disorder MATERNAL GRANDMOTHER, Chronic obstructive pulmonary disease 32 MOTHER, , Age:73 33 FATHER, , Age:73 FH: colon cancer G8 BROTHER, , Age:68 FH: obesity G8 BROTHER, , Age:42 Hypertension 32 MOTHER, , Age:73 G8 SISTER No known health problems 19 CHILD 19 CHILD No Family History of: Alzheimer's disease Congestive heart failure Diabetes insipidus Diabetes mellitus Parkinson's disease VTE VTE Risk Total Score: 2 VTE Risk Score VTE Risk: Score 0-1 = Low Risk (Aggressive mobilization; early ambulation; no VTE prophylaxis required) Score 2: Moderate Risk (Intermittent/Pneumatic Compression Device OR Lovenox/Heparin/Coumadin) Score 3-4: High Risk (Intermittent/Pneumatic Compression Device AND Lovenox/Heparin/Coumadin) Score > or =5: Highest Risk (Intermittent/Pneumatic Compression Device AND Lovenox/Heparin/Coumadin) Review of Systems Constitutional: Weakness; No: Fever, Chills, Sweats, Malaise, Other Respiratory: Cough, Shortness of breath, SOB with excertion; No: Dry, Wheezing , Hemoptysis, Pleuritic Pain, Sputum, Wheezing, Other Cardiovascular: No: Chest Pain, Palpitations, Orthopnea, Paroxysmal Noc. Dyspnea, Edema, Lt Headedness, Other Gastrointestinal: No: Nausea, Vomiting, Abdominal Pain, Diarrhea, Constipation , Melena, Hematochezia, Other Genitourinary: No Dysuria, No Frequency, No Incontinence, No Hematuria, No Retention, No Other Neurological: Weakness; No: Numbness, Incoordination, Change in speech, Confusion, Seizures, Other Allergies: Coded Allergies: iodine (Verified Allergy, Severe, EXTREME HEAT, SWELLING, SNEEZING, 11/13/17 ) IV INJECTION 1974 PT VOICED BEING ABLE TO EAT SHELLFISH sulfadiazine (Verified Allergy, Severe, DIFFICULTY BREATHING, LOW O2 STATS , 11/13/17) Scheduled Albuterol Sulfate (Albuterol Sulfate), 1 VIAL NEB BID, (Reported) Aspirin (Aspir 81), 1 TAB PO DAILY, (Reported) Budesonide (Pulmicort), 0.5 MG IH BID Budesonide (Budesonide), 1 VIAL NEB BID, (Reported) Gabapentin (Gabapentin), 1 CAP PO TID, (Reported) Hydroxychloroquine Sulfate (Hydroxychloroquine Sulfate), 1 TAB PO BID, (Reported ) Lansoprazole (Lansoprazole), 1 CAP PO DAILY, (Reported) Scheduled PRN Albuterol Sulfate (Albuterol Sulfate), 1 VIAL NEB Q6 PRN for SHORTNESS OF BREATH , (Reported) Metaxalone (Metaxalone), 800 MG PO TID PRN for PAIN, (Reported) Discontinued Medications Certolizumab Pegol (Cimzia), 200 MG SQ EVERY 28 DAYS, (Reported) Discontinued Reason: No Longer Taking Gabapentin (Gabapentin), 1 CAP PO DAILY24, (Reported) Discontinued Reason: Cancel Hydroxychloroquine Sulfate (Hydroxychloroquine Sulfate), 1 TAB PO BID, (Reported ) Discontinued Reason: Discontinue Prednisone (Prednisone), 5 MG PO DAILY24, (Reported) Discontinued Reason: No Longer Taking Objective Vitals and I/O Vital Sign - Last 24 Hours 10/08/18 10/08/18 10/08/18 10/08/18 08:34 09:15 09:43 09:47 Temp 98.5 98.5 Pulse 72 75 76 63 Resp 14 18 16 14 B/P (MAP) 116/63 (80) Pulse Ox 91 95 94 O2 Delivery Nasal Canula O2 Flow Rate 2.50 2.00 FiO2 30 10/08/18 10/08/18 10/08/18 10/08/18 11:12 14:18 14:22 15:28 Temp 98.3 98.3 Pulse 82 88 87 Resp 14 14 18 B/P (MAP) 117/61 (79) Pulse Ox 93 93 O2 Delivery Nasal Cannula Nasal Canula O2 Flow Rate 2.00 2.00 10/08/18 10/08/18 10/08/18 10/08/18 18:45 19:42 19:43 20:40 Temp 97.8 97.8 Pulse 96 66 60 Resp 18 18 18 B/P (MAP) 100/59 (73) Pulse Ox 96 93 O2 Delivery Nasal Cannula Nasal Canula Nasal Cannula O2 Flow Rate 2.50 2.50 2.50 FiO2 30 10/08/18 10/08/18 10/09/18 20:47 23:09 03:55 Temp 97.6 98.5 97.6 98.5 Pulse 60 76 78 Resp 18 20 18 B/P (MAP) 131/62 (85) 118/65 (82) Pulse Ox 93 O2 Delivery Nasal Canula Nasal Canula O2 Flow Rate 2.50 2.50 Intake and Output 10/08/18 10/08/18 10/09/18 15:00 23:00 07:00 Intake Total 240 ml 250 ml 1300 ml Output Total 700 ml Balance 240 ml 250 ml 600 ml General: Alert, Oriented X3, Cooperative, No acute distress Neck: Supple, No JVD Lungs: Clear to auscultation, Other (Decreased BS at the R base.) Heart: Regular rate, Normal S1, Normal S2, No murmurs Abdomen: Normal bowel sounds, Soft, No tenderness, No masses Extremities: No clubbing, No cyanosis, No edema, Normal pulses, No tenderness/ swelling Neuro: Normal gait, Normal speech, Strength at 5/5 X4 ext, Normal tone, Sensation intact Psych/Mental Status: Mental status NL, Mood NL All Results(Lab/Rad) Laboratory Tests Test 10/09/18 05:00 White Blood Count 18.3 10^3/uL Red Blood Count 5.05 10^6/uL Hemoglobin 15.5 g/dL Hematocrit 46.9 % Mean Corpuscular Volume 92.9 fL Mean Corpuscular Hemoglobin 30.7 pg Mean Corpuscular Hemoglobin Concent 33.0 g/dL Red Cell Distribution Width 14.7 % Platelet Count 261 10^3/uL Mean Platelet Volume 9.8 fL Sodium Level 141 mmol/L Potassium Level 4.5 mmol/L Chloride Level 104.0 mmol/L Carbon Dioxide Level 28.4 mmol/L Anion Gap 13.1 Blood Urea Nitrogen 15 mg/dL Creatinine 0.84 mg/dL Estimated GFR () 85.2 BUN/Creatinine Ratio 17.0 Glucose Level 128 mg/dL Hemoglobin A1c 5.2 % Calcium Level 8.9 mg/dL Total Bilirubin 0.2 mg/dL Aspartate Amino Transf (AST/SGOT) 16 U/L Alanine Aminotransferase (ALT/SGPT) 29 U/L Alkaline Phosphatase 64 U/L Total Protein 7.2 g/dL Albumin 3.1 g/dL Globulin 4.1 Thyroid Stimulating Hormone (TSH) 0.084 mIU/mL Current Medications Medications (Trade) Dose Ordered Sig/Tristan Route PRN Reason Start Time Stop Time Status Last Admin Dose Admin Furosemide (Lasix) 40 mg STAT STAT PO 10/07/18 18:56 10/07/18 18:58 DC Albuterol/ Ipratropium (Duoneb 0.5 Mg-3 Mg/3 ml Soln) 3 ml STAT STAT IH 10/07/18 18:56 10/07/18 18:58 DC 10/07/18 19:21 Albuterol/ Ipratropium (Duoneb 0.5 Mg-3 Mg/3 ml Soln) 3 ml STK-MED ONCE IH 10/07/18 19:15 10/07/18 19:17 DC Dexamethasone Sodium Phosphate (Decadron) 10 mg STAT STAT IV 10/07/18 19:25 10/07/18 19:27 DC 10/07/18 20:20 Diphenhydramine HCl (Benadryl) 50 mg STAT STAT IV 10/07/18 19:44 10/07/18 19:45 DC 10/07/18 20:20 Furosemide (Lasix) 20 mg STAT STAT IV 10/07/18 20:07 10/07/18 20:08 DC 10/07/18 20:21 Furosemide (Lasix) 20 mg STK-MED ONCE .ROUTE 10/07/18 20:07 10/07/18 20:09 DC Diphenhydramine HCl (Benadryl) 50 mg STK-MED ONCE .ROUTE 10/07/18 20:07 10/07/18 20:09 DC Dexamethasone Sodium Phosphate (Decadron) 4 mg STK-MED ONCE .ROUTE 10/07/18 20:08 10/07/18 20:10 DC Albuterol/ Ipratropium (Duoneb 0.5 Mg-3 Mg/3 ml Soln) 3 ml STK-MED ONCE IH 10/07/18 21:54 10/07/18 21:56 DC Pantoprazole Sodium (Protonix) 40 mg DAILY PO 10/08/18 09:00 11/07/18 08:59 10/08/18 09:21 Methylprednisolone Sodium Succinate (Solu-Medrol) 60 mg Q6 IV 10/08/18 07:00 10/08/18 13:44 DC 10/08/18 09:21 Albuterol/ Ipratropium (Duoneb 0.5 Mg-3 Mg/3 ml Soln) 3 ml RTTID IH 10/08/18 15:00 10/08/18 15:00 DC 10/08/18 09:43 Albuterol/ Ipratropium (Duoneb 0.5 Mg-3 Mg/3 ml Soln) 3 ml STK-MED ONCE IH 10/08/18 09:38 10/08/18 09:40 DC Albuterol/ Ipratropium (Duoneb 0.5 Mg-3 Mg/3 ml Soln) 3 ml RTTID IH 10/08/18 09:00 11/07/18 08:59 10/08/18 20:40 Azithromycin 500 mg/Sodium Chloride 250 ml @ 175 mls/hr Q24HRS IV 10/08/18 11:30 11/07/18 11:29 10/08/18 12:35 Sodium Chloride 250 ml @ ud STK-MED ONCE IV 10/08/18 12:25 10/08/18 12:27 DC Methylprednisolone Sodium Succinate (Solu-Medrol) 60 mg Q6H IV 10/08/18 15:00 11/07/18 14:59 10/09/18 03:43 Aspirin (Aspirin Ec) 81 mg DAILY PO 10/09/18 09:00 11/08/18 08:59 Gabapentin (Neurontin) 300 mg TID PO 10/08/18 21:00 11/07/18 20:59 10/08/18 20:58 Metaxalone (Skelaxin) 800 mg TID PO 10/08/18 21:00 10/08/18 21:00 DC Metaxalone (Skelaxin) 800 mg TID PRN PO PAIN 10/08/18 18:00 11/07/18 17:59 Hydroxychloroquine Sulfate (Plaquenil) 200 mg BID PO 10/08/18 21:00 11/07/18 20:59 10/08/18 20:58 Nicotine (Nicotine 21mg Patch) 1 each DAILY TD 10/08/18 22:30 11/07/18 22:29 10/08/18 22:20 Course Sepsis Screening Results: Posi: NEGATIVE Sepsis Qualifier/Stage: NO DEFINITE RISK Duration or Total Time Spent w: 25 Vitals & review Data Vital Sign - Last 24 Hours 10/07/18 10/07/18 10/07/18 10/07/18 18:41 18:41 19:22 19:26 Temp 98.9 98.9 98.9 98.9 Pulse 86 86 87 78 Resp 24 24 18 18 Pulse Ox 89 89 97 O2 Delivery Room Air 10/07/18 10/07/18 10/07/18 10/07/18 20:21 21:54 22:00 22:01 Pulse 83 79 Resp 22 18 20 B/P (MAP) 124/67 Pulse Ox 94 94 O2 Delivery Nasal Canula O2 Flow Rate 2.00 10/07/18 10/07/18 22:03 22:11 Pulse 81 81 Resp 20 20 Pulse Ox 93 93 O2 Delivery Nasal Cannula O2 Flow Rate 2.00 Laboratory Tests Test 10/07/18 19:05 White Blood Count 8.9 10^3/uL Red Blood Count 5.30 10^6/uL Hemoglobin 16.5 g/dL Hematocrit 48.6 % Mean Corpuscular Volume 91.7 fL Mean Corpuscular Hemoglobin 31.1 pg Mean Corpuscular Hemoglobin Concent 34.0 g/dL Red Cell Distribution Width 15.0 % Platelet Count 263 10^3/uL Mean Platelet Volume 9.4 fL Neutrophils (%) (Auto) 41.2 % Lymphocytes (%) (Auto) 43.0 % Monocytes (%) (Auto) 11.3 % Neutrophils # (Auto) 3.7 10^3/uL Lymphocytes # (Auto) 3.8 10^3/uL Monocytes # (Auto) 1.0 10^3/uL Absolute Immature Granulocyte (auto 0.01 10^3 u/L Eosinophils % 3.7 % Basophils % 0.7 % Basophils # 0.1 10^3/uL Eosinophil Count 0.3 10^3/uL Sodium Level 137 mmol/L Potassium Level 3.9 mmol/L Chloride Level 102.0 mmol/L Carbon Dioxide Level 26.3 mmol/L Anion Gap 12.6 Blood Urea Nitrogen 14 mg/dL Creatinine 0.70 mg/dL Estimated GFR () 105.1 BUN/Creatinine Ratio 20.0 Glucose Level 89 mg/dL Calcium Level 9.0 mg/dL Total Bilirubin 0.4 mg/dL Aspartate Amino Transf (AST/SGOT) 19 U/L Alanine Aminotransferase (ALT/SGPT) 29 U/L Alkaline Phosphatase 76 U/L Total Creatine Kinase 61 U/L Troponin I < 0.02 ng/mL Pro-B-Type Natriuretic Peptide 31 pg/mL Total Protein 7.8 g/dL Albumin 3.4 g/dL Globulin 4.4 Percent Immature Gran (Cell Imm) 0.10 % Helicobacter pylori Screen NEGATIVE Sepsis Infection Criteria Pres: None LEVEL 1 SEPSIS INFECTION CRITE: ABX Therapy, Cough/Shortness of Breath LEVEL 2-SIRS (LIST ALL THAT AP: [id number] Cardiovascular Evidence: Not Assessed or None Hematologic Evidence: None/Not assessed Hepatic Evidence: None/Not assessed Metabolic Evidence: None/Not assessed Neurological Evidence: None/Not assessed Respiratory Evidence: Need for O2 to keep>90%, O2 SAT<90room air Renal Evidence: None/Not assessed O2 Sat by Pulse Oximetry: 94 Respiratory End-tidal CO2: 96 Oxygen Flow Rate: 2.50 Assessment/Plan Assessment/Plan Assessment/Plan 1.) SOB - Secondary to multiple etiologies, mostly COPD exacerbation and flare- up of her Interstitial Lung Disease. Sx overall continuing to improve. - Hopefully home tomorrow or Friday. - May benefit from Morphine at home for air hunger. - Also needs a sleep study as an outpt. 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 - Cont O2 24/7. - Cont IV Corticosteroids and will begin to ween tomorrow. - Nebulizer tx here and outpt. - MUST stop smoking. 3.) Hypoxia - Secondary to ILD, COPD, Probably SHAZIA, Obesity Hypoventilation Syndrome and continued smoking. - Cont tx as above. - Consider Echo. 4.) COPD Exacerbation with Obesity Hypoventilation Syndrome - Sx slowly improving. - Ween steroids tomorrow. - Continue Nebulizer. - Home O2 24/7. - Counseled extensively on the benefit she would get from weight loss. 5.) Generalized Weakness - Continue small increases in ambulation to try and improve conditioning. 6.) Increased TSH - Check FT4 in AM. 7.) Leukocytosis - Secondary to steroids. Improving. JARRETT PLUMMER MD Oct 10, 2018 10:40
[2018-10-10] MEDS: ZITHROMAX 500 MG in NS 250ML 250 ML IV SCH (11:41)
[2018-10-10 14:09] VITALS: BP 128/64
[2018-10-10 19:29] VITALS: BP 106/78
[2018-10-11 01:20] VITALS: BP 115/64
[2018-10-11] MEDS: SOLU-MEDROL IV SCH ×3 (03:27→20:58)
[2018-10-11 04:37] VITALS: BP 118/58
[2018-10-11 07:34] VITALS: BP 118/68
[2018-10-11] MEDS: SKELAXIN PO PRN (08:36)
[2018-10-11] MEDS: NEURONTIN PO SCH ×3 (08:37→20:57)
[2018-10-11] MEDS: PLAQUENIL PO SCH ×2 (08:37→20:57)
[2018-10-11] MEDS: ASPIRIN EC PO SCH (08:37)
[2018-10-11] MEDS: PROTONIX PO SCH ×2 (08:37)
[2018-10-11] MEDS: NICOTINE 21MG PATCH TD SCH (08:37)
--- NOTE | 2018-10-11 08:40 | NUR ---
PT OWN MEDICATION PT TOOK OWN HOME MEDICATION OF SELAXIN 800MG. OKAY GO GIVE PTS OWN BY PER DR. PLUMMER
--- NOTE | 2018-10-11 08:40 | NUR ---
ROOM AIR CHALLENGE PT PLACED ON ROOM AIR AT THIS TIME. SITTING SPO2 ON RA 85%. PT DOES NOT VOICE SOB. PT AMBULATED IN HALLWAY 150FT. SPO2 81% ON ROOM AIR. PLACED PT BACK ON O2 AT 2.5LPM PER NC. PT SPO2 INCREASED TO 91%.
[2018-10-11] MEDS: DUONEB 0.5 MG-3 MG/3 ML SOLN IH SCH ×3 (09:12→19:35)
--- NOTE | 2018-10-11 09:31 | PRM.PN ---
Subjective Subjective Date: Oct 11, 2018 Time: 09:31 Subjective Breathing a little better today No significant problems overnight. A little fatigued today overall but still ambulating and spending more time up in the chair. Significantly hypoxic even at rest. Patient History: Asthma 32 MOTHER, , Age:75 33 FATHER, , Age:73 Bone cancer G8 BROTHER, , Age:68 Cerebrovascular disorder MATERNAL GRANDMOTHER, Chronic obstructive pulmonary disease 32 MOTHER, , Age:73 33 FATHER, , Age:73 FH: colon cancer G8 BROTHER, , Age:68 FH: obesity G8 BROTHER, , Age:42 Hypertension 32 MOTHER, , Age:73 G8 SISTER No known health problems 19 CHILD 19 CHILD No Family History of: Alzheimer's disease Congestive heart failure Diabetes insipidus Diabetes mellitus Parkinson's disease VTE VTE Risk Total Score: 2 VTE Risk Score VTE Risk: Score 0-1 = Low Risk (Aggressive mobilization; early ambulation; no VTE prophylaxis required) Score 2: Moderate Risk (Intermittent/Pneumatic Compression Device OR Lovenox/Heparin/Coumadin) Score 3-4: High Risk (Intermittent/Pneumatic Compression Device AND Lovenox/Heparin/Coumadin) Score > or =5: Highest Risk (Intermittent/Pneumatic Compression Device AND Lovenox/Heparin/Coumadin) Review of Systems Constitutional: Weakness; No: Fever, Chills, Sweats, Malaise, Other Respiratory: Cough, Shortness of breath, SOB with excertion; No: Dry, Wheezing , Hemoptysis, Pleuritic Pain, Sputum, Wheezing, Other Cardiovascular: No: Chest Pain, Palpitations, Orthopnea, Paroxysmal Noc. Dyspnea, Edema, Lt Headedness, Other Gastrointestinal: No: Nausea, Vomiting, Abdominal Pain, Diarrhea, Constipation , Melena, Hematochezia, Other Genitourinary: No Dysuria, No Frequency, No Incontinence, No Hematuria, No Retention, No Other Neurological: Weakness; No: Numbness, Incoordination, Change in speech, Confusion, Seizures, Other Allergies: Coded Allergies: iodine (Verified Allergy, Severe, EXTREME HEAT, SWELLING, SNEEZING, 11/13/17 ) IV INJECTION 1974 PT VOICED BEING ABLE TO EAT SHELLFISH sulfadiazine (Verified Allergy, Severe, DIFFICULTY BREATHING, LOW O2 STATS , 11/13/17) Scheduled Albuterol Sulfate (Albuterol Sulfate), 1 VIAL NEB BID, (Reported) Aspirin (Aspir 81), 1 TAB PO DAILY, (Reported) Budesonide (Pulmicort), 0.5 MG IH BID Budesonide (Budesonide), 1 VIAL NEB BID, (Reported) Gabapentin (Gabapentin), 1 CAP PO TID, (Reported) Hydroxychloroquine Sulfate (Hydroxychloroquine Sulfate), 1 TAB PO BID, (Reported ) Lansoprazole (Lansoprazole), 1 CAP PO DAILY, (Reported) Scheduled PRN Albuterol Sulfate (Albuterol Sulfate), 1 VIAL NEB Q6 PRN for SHORTNESS OF BREATH , (Reported) Metaxalone (Metaxalone), 800 MG PO TID PRN for PAIN, (Reported) Discontinued Medications Certolizumab Pegol (Cimzia), 200 MG SQ EVERY 28 DAYS, (Reported) Discontinued Reason: No Longer Taking Gabapentin (Gabapentin), 1 CAP PO DAILY24, (Reported) Discontinued Reason: Cancel Hydroxychloroquine Sulfate (Hydroxychloroquine Sulfate), 1 TAB PO BID, (Reported ) Discontinued Reason: Discontinue Prednisone (Prednisone), 5 MG PO DAILY24, (Reported) Discontinued Reason: No Longer Taking Objective Vitals and I/O Vital Sign - Last 24 Hours 10/08/18 10/08/18 10/08/18 10/08/18 08:34 09:15 09:43 09:47 Temp 98.5 98.5 Pulse 72 75 76 63 Resp 14 18 16 14 B/P (MAP) 116/63 (80) Pulse Ox 91 95 94 O2 Delivery Nasal Canula O2 Flow Rate 2.50 2.00 FiO2 30 10/08/18 10/08/18 10/08/18 10/08/18 11:12 14:18 14:22 15:28 Temp 98.3 98.3 Pulse 82 88 87 Resp 14 14 18 B/P (MAP) 117/61 (79) Pulse Ox 93 93 O2 Delivery Nasal Cannula Nasal Canula O2 Flow Rate 2.00 2.00 10/08/18 10/08/18 10/08/18 10/08/18 18:45 19:42 19:43 20:40 Temp 97.8 97.8 Pulse 96 66 60 Resp 18 18 18 B/P (MAP) 100/59 (73) Pulse Ox 96 93 O2 Delivery Nasal Cannula Nasal Canula Nasal Cannula O2 Flow Rate 2.50 2.50 2.50 FiO2 30 10/08/18 10/08/18 10/09/18 20:47 23:09 03:55 Temp 97.6 98.5 97.6 98.5 Pulse 60 76 78 Resp 18 20 18 B/P (MAP) 131/62 (85) 118/65 (82) Pulse Ox 93 O2 Delivery Nasal Canula Nasal Canula O2 Flow Rate 2.50 2.50 Intake and Output 10/08/18 10/08/18 10/09/18 15:00 23:00 07:00 Intake Total 240 ml 250 ml 1300 ml Output Total 700 ml Balance 240 ml 250 ml 600 ml General: Alert, Oriented X3, Cooperative, No acute distress Neck: Supple, No JVD Lungs: Clear to auscultation, Other (Decreased BS at the R base.) Heart: Regular rate, Normal S1, Normal S2, No murmurs Abdomen: Normal bowel sounds, Soft, No tenderness, No masses Extremities: No clubbing, No cyanosis, No edema, Normal pulses, No tenderness/ swelling Neuro: Normal gait, Normal speech, Strength at 5/5 X4 ext, Normal tone, Sensation intact Psych/Mental Status: Mental status NL, Mood NL All Results(Lab/Rad) Laboratory Tests Test 10/09/18 05:00 White Blood Count 18.3 10^3/uL Red Blood Count 5.05 10^6/uL Hemoglobin 15.5 g/dL Hematocrit 46.9 % Mean Corpuscular Volume 92.9 fL Mean Corpuscular Hemoglobin 30.7 pg Mean Corpuscular Hemoglobin Concent 33.0 g/dL Red Cell Distribution Width 14.7 % Platelet Count 261 10^3/uL Mean Platelet Volume 9.8 fL Sodium Level 141 mmol/L Potassium Level 4.5 mmol/L Chloride Level 104.0 mmol/L Carbon Dioxide Level 28.4 mmol/L Anion Gap 13.1 Blood Urea Nitrogen 15 mg/dL Creatinine 0.84 mg/dL Estimated GFR () 85.2 BUN/Creatinine Ratio 17.0 Glucose Level 128 mg/dL Hemoglobin A1c 5.2 % Calcium Level 8.9 mg/dL Total Bilirubin 0.2 mg/dL Aspartate Amino Transf (AST/SGOT) 16 U/L Alanine Aminotransferase (ALT/SGPT) 29 U/L Alkaline Phosphatase 64 U/L Total Protein 7.2 g/dL Albumin 3.1 g/dL Globulin 4.1 Thyroid Stimulating Hormone (TSH) 0.084 mIU/mL Current Medications Medications (Trade) Dose Ordered Sig/Tristan Route PRN Reason Start Time Stop Time Status Last Admin Dose Admin Furosemide (Lasix) 40 mg STAT STAT PO 10/07/18 18:56 10/07/18 18:58 DC Albuterol/ Ipratropium (Duoneb 0.5 Mg-3 Mg/3 ml Soln) 3 ml STAT STAT IH 10/07/18 18:56 10/07/18 18:58 DC 10/07/18 19:21 Albuterol/ Ipratropium (Duoneb 0.5 Mg-3 Mg/3 ml Soln) 3 ml STK-MED ONCE IH 10/07/18 19:15 10/07/18 19:17 DC Dexamethasone Sodium Phosphate (Decadron) 10 mg STAT STAT IV 10/07/18 19:25 10/07/18 19:27 DC 10/07/18 20:20 Diphenhydramine HCl (Benadryl) 50 mg STAT STAT IV 10/07/18 19:44 10/07/18 19:45 DC 10/07/18 20:20 Furosemide (Lasix) 20 mg STAT STAT IV 10/07/18 20:07 10/07/18 20:08 DC 10/07/18 20:21 Furosemide (Lasix) 20 mg STK-MED ONCE .ROUTE 10/07/18 20:07 10/07/18 20:09 DC Diphenhydramine HCl (Benadryl) 50 mg STK-MED ONCE .ROUTE 10/07/18 20:07 10/07/18 20:09 DC Dexamethasone Sodium Phosphate (Decadron) 4 mg STK-MED ONCE .ROUTE 10/07/18 20:08 10/07/18 20:10 DC Albuterol/ Ipratropium (Duoneb 0.5 Mg-3 Mg/3 ml Soln) 3 ml STK-MED ONCE IH 10/07/18 21:54 10/07/18 21:56 DC Pantoprazole Sodium (Protonix) 40 mg DAILY PO 10/08/18 09:00 11/07/18 08:59 10/08/18 09:21 Methylprednisolone Sodium Succinate (Solu-Medrol) 60 mg Q6 IV 10/08/18 07:00 10/08/18 13:44 DC 10/08/18 09:21 Albuterol/ Ipratropium (Duoneb 0.5 Mg-3 Mg/3 ml Soln) 3 ml RTTID IH 10/08/18 15:00 10/08/18 15:00 DC 10/08/18 09:43 Albuterol/ Ipratropium (Duoneb 0.5 Mg-3 Mg/3 ml Soln) 3 ml STK-MED ONCE IH 10/08/18 09:38 10/08/18 09:40 DC Albuterol/ Ipratropium (Duoneb 0.5 Mg-3 Mg/3 ml Soln) 3 ml RTTID IH 10/08/18 09:00 11/07/18 08:59 10/08/18 20:40 Azithromycin 500 mg/Sodium Chloride 250 ml @ 175 mls/hr Q24HRS IV 10/08/18 11:30 11/07/18 11:29 10/08/18 12:35 Sodium Chloride 250 ml @ ud STK-MED ONCE IV 10/08/18 12:25 10/08/18 12:27 DC Methylprednisolone Sodium Succinate (Solu-Medrol) 60 mg Q6H IV 10/08/18 15:00 11/07/18 14:59 10/09/18 03:43 Aspirin (Aspirin Ec) 81 mg DAILY PO 10/09/18 09:00 11/08/18 08:59 Gabapentin (Neurontin) 300 mg TID PO 10/08/18 21:00 11/07/18 20:59 10/08/18 20:58 Metaxalone (Skelaxin) 800 mg TID PO 10/08/18 21:00 10/08/18 21:00 DC Metaxalone (Skelaxin) 800 mg TID PRN PO PAIN 10/08/18 18:00 11/07/18 17:59 Hydroxychloroquine Sulfate (Plaquenil) 200 mg BID PO 10/08/18 21:00 11/07/18 20:59 10/08/18 20:58 Nicotine (Nicotine 21mg Patch) 1 each DAILY TD 10/08/18 22:30 11/07/18 22:29 10/08/18 22:20 Course Sepsis Screening Results: Posi: NEGATIVE Sepsis Qualifier/Stage: NO DEFINITE RISK Duration or Total Time Spent w: 25 Vitals & review Data Vital Sign - Last 24 Hours 10/07/18 10/07/18 10/07/18 10/07/18 18:41 18:41 19:22 19:26 Temp 98.9 98.9 98.9 98.9 Pulse 86 86 87 78 Resp 24 24 18 18 Pulse Ox 89 89 97 O2 Delivery Room Air 10/07/18 10/07/18 10/07/18 10/07/18 20:21 21:54 22:00 22:01 Pulse 83 79 Resp 22 18 20 B/P (MAP) 124/67 Pulse Ox 94 94 O2 Delivery Nasal Canula O2 Flow Rate 2.00 10/07/18 10/07/18 22:03 22:11 Pulse 81 81 Resp 20 20 Pulse Ox 93 93 O2 Delivery Nasal Cannula O2 Flow Rate 2.00 Laboratory Tests Test 10/07/18 19:05 White Blood Count 8.9 10^3/uL Red Blood Count 5.30 10^6/uL Hemoglobin 16.5 g/dL Hematocrit 48.6 % Mean Corpuscular Volume 91.7 fL Mean Corpuscular Hemoglobin 31.1 pg Mean Corpuscular Hemoglobin Concent 34.0 g/dL Red Cell Distribution Width 15.0 % Platelet Count 263 10^3/uL Mean Platelet Volume 9.4 fL Neutrophils (%) (Auto) 41.2 % Lymphocytes (%) (Auto) 43.0 % Monocytes (%) (Auto) 11.3 % Neutrophils # (Auto) 3.7 10^3/uL Lymphocytes # (Auto) 3.8 10^3/uL Monocytes # (Auto) 1.0 10^3/uL Absolute Immature Granulocyte (auto 0.01 10^3 u/L Eosinophils % 3.7 % Basophils % 0.7 % Basophils # 0.1 10^3/uL Eosinophil Count 0.3 10^3/uL Sodium Level 137 mmol/L Potassium Level 3.9 mmol/L Chloride Level 102.0 mmol/L Carbon Dioxide Level 26.3 mmol/L Anion Gap 12.6 Blood Urea Nitrogen 14 mg/dL Creatinine 0.70 mg/dL Estimated GFR () 105.1 BUN/Creatinine Ratio 20.0 Glucose Level 89 mg/dL Calcium Level 9.0 mg/dL Total Bilirubin 0.4 mg/dL Aspartate Amino Transf (AST/SGOT) 19 U/L Alanine Aminotransferase (ALT/SGPT) 29 U/L Alkaline Phosphatase 76 U/L Total Creatine Kinase 61 U/L Troponin I < 0.02 ng/mL Pro-B-Type Natriuretic Peptide 31 pg/mL Total Protein 7.8 g/dL Albumin 3.4 g/dL Globulin 4.4 Percent Immature Gran (Cell Imm) 0.10 % Helicobacter pylori Screen NEGATIVE Sepsis Infection Criteria Pres: None LEVEL 1 SEPSIS INFECTION CRITE: ABX Therapy, Cough/Shortness of Breath LEVEL 2-SIRS (LIST ALL THAT AP: [id number] Cardiovascular Evidence: Not Assessed or None Hematologic Evidence: None/Not assessed Hepatic Evidence: None/Not assessed Metabolic Evidence: None/Not assessed Neurological Evidence: None/Not assessed Respiratory Evidence: Need for O2 to keep>90%, O2 SAT<90room air Renal Evidence: None/Not assessed O2 Sat by Pulse Oximetry: 91 Respiratory End-tidal CO2: 96 Oxygen Flow Rate: 2.50 Assessment/Plan Assessment/Plan Assessment/Plan 1.) SOB - Secondary to multiple etiologies, mostly COPD exacerbation and flare- up of her Interstitial Lung Disease. Sx overall continuing to improve. - Hopefully home in AM. - May benefit from Morphine at home for air hunger. - Also needs a sleep study as an outpt. 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 - Cont O2 24/7. - Cont IV Corticosteroids and will begin to ween tomorrow. - Nebulizer tx here and outpt. - MUST stop smoking. 3.) Hypoxia - Secondary to ILD, COPD, Probably SHAZIA, Obesity Hypoventilation Syndrome and continued smoking. - Cont tx as above. - Echo in AM. 4.) COPD Exacerbation with Obesity Hypoventilation Syndrome - Sx slowly improving. - Ween steroids. - Continue Nebulizer. - Home O2 24/7. - Counseled extensively on the benefit she would get from weight loss. 5.) Generalized Weakness - Continue small increases in ambulation to try and improve conditioning. - Would benefit from HH PT at home. 6.) Increased TSH - Subclinical hypothyroidism. FT4 good. 7.) Leukocytosis - Secondary to steroids. Improving. 8.) Erythrocytosis - Secondary to chronic lung disease and years of smoking. - May also benefit from scheduled phlebotomy. - As above, must stop smoking. JARRETT PLUMMER MD Oct 11, 2018 09:31
[2018-10-11] MEDS ORDERED: LASIX IV STA (11:41)
[2018-10-11 11:50] VITALS: BP 119/71
[2018-10-11] MEDS: ZITHROMAX 500 MG in NS 250ML 250 ML IV SCH (12:09)
[2018-10-11] MEDS ORDERED: SOLU-MEDROL ONE ×2 (15:06→20:57)
[2018-10-11 16:42] VITALS: BP 116/52
[2018-10-11 20:25] VITALS: BP 115/65
[2018-10-11] MEDS ORDERED: SOLU-MEDROL IV SCH (22:00)
[2018-10-12 00:46] VITALS: BP 112/58
[2018-10-12 04:03] VITALS: BP 124/71
[2018-10-12] MEDS: SOLU-MEDROL IV SCH (06:02)
[2018-10-12 07:46] VITALS: BP 123/71
--- NOTE | 2018-10-12 08:07 | PRM.PN ---
Subjective Subjective Date: Oct 12, 2018 Time: 08:06 Subjective No events overnight. Strength slowly improving. Continues to ambulate a little further each day. She feels like she may be better than baseline in terms of her breathing. Patient History: Asthma 32 MOTHER, , Age:75 33 FATHER, , Age:73 Bone cancer G8 BROTHER, , Age:68 Cerebrovascular disorder MATERNAL GRANDMOTHER, Chronic obstructive pulmonary disease 32 MOTHER, , Age:73 33 FATHER, , Age:73 FH: colon cancer G8 BROTHER, , Age:68 FH: obesity G8 BROTHER, , Age:42 Hypertension 32 MOTHER, , Age:73 G8 SISTER No known health problems 19 CHILD 19 CHILD No Family History of: Alzheimer's disease Congestive heart failure Diabetes insipidus Diabetes mellitus Parkinson's disease VTE VTE Risk Total Score: 2 VTE Risk Score VTE Risk: Score 0-1 = Low Risk (Aggressive mobilization; early ambulation; no VTE prophylaxis required) Score 2: Moderate Risk (Intermittent/Pneumatic Compression Device OR Lovenox/Heparin/Coumadin) Score 3-4: High Risk (Intermittent/Pneumatic Compression Device AND Lovenox/Heparin/Coumadin) Score > or =5: Highest Risk (Intermittent/Pneumatic Compression Device AND Lovenox/Heparin/Coumadin) Review of Systems Constitutional: Weakness; No: Fever, Chills, Sweats, Malaise, Other Respiratory: Cough, Shortness of breath, SOB with excertion; No: Dry, Wheezing , Hemoptysis, Pleuritic Pain, Sputum, Wheezing, Other Cardiovascular: No: Chest Pain, Palpitations, Orthopnea, Paroxysmal Noc. Dyspnea, Edema, Lt Headedness, Other Gastrointestinal: No: Nausea, Vomiting, Abdominal Pain, Diarrhea, Constipation , Melena, Hematochezia, Other Genitourinary: No Dysuria, No Frequency, No Incontinence, No Hematuria, No Retention, No Other Neurological: Weakness; No: Numbness, Incoordination, Change in speech, Confusion, Seizures, Other Allergies: Coded Allergies: iodine (Verified Allergy, Severe, EXTREME HEAT, SWELLING, SNEEZING, 11/13/17 ) IV INJECTION 1974 PT VOICED BEING ABLE TO EAT SHELLFISH sulfadiazine (Verified Allergy, Severe, DIFFICULTY BREATHING, LOW O2 STATS , 11/13/17) Scheduled Albuterol Sulfate (Albuterol Sulfate), 1 VIAL NEB BID, (Reported) Aspirin (Aspir 81), 1 TAB PO DAILY, (Reported) Azithromycin (Azithromycin), 250 MG PO DAILY24 Budesonide (Pulmicort), 0.5 MG IH BID Budesonide (Budesonide), 1 VIAL NEB BID, (Reported) Gabapentin (Gabapentin), 1 CAP PO TID, (Reported) Hydroxychloroquine Sulfate (Hydroxychloroquine Sulfate), 1 TAB PO BID, (Reported ) Lansoprazole (Lansoprazole), 1 CAP PO DAILY, (Reported) Prednisone (Prednisone), 10 MG PO DAILY24 Scheduled PRN Albuterol Sulfate (Albuterol Sulfate), 1 VIAL NEB Q6 PRN for SHORTNESS OF BREATH , (Reported) Metaxalone (Metaxalone), 800 MG PO TID PRN for PAIN, (Reported) Discontinued Medications Certolizumab Pegol (Cimzia), 200 MG SQ EVERY 28 DAYS, (Reported) Discontinued Reason: No Longer Taking Gabapentin (Gabapentin), 1 CAP PO DAILY24, (Reported) Discontinued Reason: Cancel Hydroxychloroquine Sulfate (Hydroxychloroquine Sulfate), 1 TAB PO BID, (Reported ) Discontinued Reason: Discontinue Prednisone (Prednisone), 5 MG PO DAILY24, (Reported) Discontinued Reason: No Longer Taking Objective Vitals and I/O Vital Sign - Last 24 Hours 10/08/18 10/08/18 10/08/18 10/08/18 08:34 09:15 09:43 09:47 Temp 98.5 98.5 Pulse 72 75 76 63 Resp 14 18 16 14 B/P (MAP) 116/63 (80) Pulse Ox 91 95 94 O2 Delivery Nasal Canula O2 Flow Rate 2.50 2.00 FiO2 30 10/08/18 10/08/18 10/08/18 10/08/18 11:12 14:18 14:22 15:28 Temp 98.3 98.3 Pulse 82 88 87 Resp 14 14 18 B/P (MAP) 117/61 (79) Pulse Ox 93 93 O2 Delivery Nasal Cannula Nasal Canula O2 Flow Rate 2.00 2.00 10/08/18 10/08/18 10/08/18 10/08/18 18:45 19:42 19:43 20:40 Temp 97.8 97.8 Pulse 96 66 60 Resp 18 18 18 B/P (MAP) 100/59 (73) Pulse Ox 96 93 O2 Delivery Nasal Cannula Nasal Canula Nasal Cannula O2 Flow Rate 2.50 2.50 2.50 FiO2 30 10/08/18 10/08/18 10/09/18 20:47 23:09 03:55 Temp 97.6 98.5 97.6 98.5 Pulse 60 76 78 Resp 18 20 18 B/P (MAP) 131/62 (85) 118/65 (82) Pulse Ox 93 O2 Delivery Nasal Canula Nasal Canula O2 Flow Rate 2.50 2.50 Intake and Output 10/08/18 10/08/18 10/09/18 15:00 23:00 07:00 Intake Total 240 ml 250 ml 1300 ml Output Total 700 ml Balance 240 ml 250 ml 600 ml General: Alert, Oriented X3, Cooperative, No acute distress Neck: Supple, No JVD Lungs: Clear to auscultation, Other (Decreased BS at the R base.) Heart: Regular rate, Normal S1, Normal S2, No murmurs Abdomen: Normal bowel sounds, Soft, No tenderness, No masses Extremities: No clubbing, No cyanosis, No edema, Normal pulses, No tenderness/ swelling Neuro: Normal gait, Normal speech, Strength at 5/5 X4 ext, Normal tone, Sensation intact Psych/Mental Status: Mental status NL, Mood NL All Results(Lab/Rad) Laboratory Tests Test 10/09/18 05:00 White Blood Count 18.3 10^3/uL Red Blood Count 5.05 10^6/uL Hemoglobin 15.5 g/dL Hematocrit 46.9 % Mean Corpuscular Volume 92.9 fL Mean Corpuscular Hemoglobin 30.7 pg Mean Corpuscular Hemoglobin Concent 33.0 g/dL Red Cell Distribution Width 14.7 % Platelet Count 261 10^3/uL Mean Platelet Volume 9.8 fL Sodium Level 141 mmol/L Potassium Level 4.5 mmol/L Chloride Level 104.0 mmol/L Carbon Dioxide Level 28.4 mmol/L Anion Gap 13.1 Blood Urea Nitrogen 15 mg/dL Creatinine 0.84 mg/dL Estimated GFR () 85.2 BUN/Creatinine Ratio 17.0 Glucose Level 128 mg/dL Hemoglobin A1c 5.2 % Calcium Level 8.9 mg/dL Total Bilirubin 0.2 mg/dL Aspartate Amino Transf (AST/SGOT) 16 U/L Alanine Aminotransferase (ALT/SGPT) 29 U/L Alkaline Phosphatase 64 U/L Total Protein 7.2 g/dL Albumin 3.1 g/dL Globulin 4.1 Thyroid Stimulating Hormone (TSH) 0.084 mIU/mL Current Medications Medications (Trade) Dose Ordered Sig/Tristan Route PRN Reason Start Time Stop Time Status Last Admin Dose Admin Furosemide (Lasix) 40 mg STAT STAT PO 10/07/18 18:56 10/07/18 18:58 DC Albuterol/ Ipratropium (Duoneb 0.5 Mg-3 Mg/3 ml Soln) 3 ml STAT STAT IH 10/07/18 18:56 10/07/18 18:58 DC 10/07/18 19:21 Albuterol/ Ipratropium (Duoneb 0.5 Mg-3 Mg/3 ml Soln) 3 ml STK-MED ONCE IH 10/07/18 19:15 10/07/18 19:17 DC Dexamethasone Sodium Phosphate (Decadron) 10 mg STAT STAT IV 10/07/18 19:25 10/07/18 19:27 DC 10/07/18 20:20 Diphenhydramine HCl (Benadryl) 50 mg STAT STAT IV 10/07/18 19:44 10/07/18 19:45 DC 10/07/18 20:20 Furosemide (Lasix) 20 mg STAT STAT IV 10/07/18 20:07 10/07/18 20:08 DC 10/07/18 20:21 Furosemide (Lasix) 20 mg STK-MED ONCE .ROUTE 10/07/18 20:07 10/07/18 20:09 DC Diphenhydramine HCl (Benadryl) 50 mg STK-MED ONCE .ROUTE 10/07/18 20:07 10/07/18 20:09 DC Dexamethasone Sodium Phosphate (Decadron) 4 mg STK-MED ONCE .ROUTE 10/07/18 20:08 10/07/18 20:10 DC Albuterol/ Ipratropium (Duoneb 0.5 Mg-3 Mg/3 ml Soln) 3 ml STK-MED ONCE IH 10/07/18 21:54 10/07/18 21:56 DC Pantoprazole Sodium (Protonix) 40 mg DAILY PO 10/08/18 09:00 11/07/18 08:59 10/08/18 09:21 Methylprednisolone Sodium Succinate (Solu-Medrol) 60 mg Q6 IV 10/08/18 07:00 10/08/18 13:44 DC 10/08/18 09:21 Albuterol/ Ipratropium (Duoneb 0.5 Mg-3 Mg/3 ml Soln) 3 ml RTTID IH 10/08/18 15:00 10/08/18 15:00 DC 10/08/18 09:43 Albuterol/ Ipratropium (Duoneb 0.5 Mg-3 Mg/3 ml Soln) 3 ml STK-MED ONCE IH 10/08/18 09:38 10/08/18 09:40 DC Albuterol/ Ipratropium (Duoneb 0.5 Mg-3 Mg/3 ml Soln) 3 ml RTTID IH 10/08/18 09:00 11/07/18 08:59 10/08/18 20:40 Azithromycin 500 mg/Sodium Chloride 250 ml @ 175 mls/hr Q24HRS IV 10/08/18 11:30 11/07/18 11:29 10/08/18 12:35 Sodium Chloride 250 ml @ ud STK-MED ONCE IV 10/08/18 12:25 10/08/18 12:27 DC Methylprednisolone Sodium Succinate (Solu-Medrol) 60 mg Q6H IV 10/08/18 15:00 11/07/18 14:59 10/09/18 03:43 Aspirin (Aspirin Ec) 81 mg DAILY PO 10/09/18 09:00 11/08/18 08:59 Gabapentin (Neurontin) 300 mg TID PO 10/08/18 21:00 11/07/18 20:59 10/08/18 20:58 Metaxalone (Skelaxin) 800 mg TID PO 10/08/18 21:00 10/08/18 21:00 DC Metaxalone (Skelaxin) 800 mg TID PRN PO PAIN 10/08/18 18:00 11/07/18 17:59 Hydroxychloroquine Sulfate (Plaquenil) 200 mg BID PO 10/08/18 21:00 11/07/18 20:59 10/08/18 20:58 Nicotine (Nicotine 21mg Patch) 1 each DAILY TD 2/28/19 22:30 11/07/18 22:29 10/08/18 22:20 Course Sepsis Screening Results: Posi: NEGATIVE Sepsis Qualifier/Stage: NO DEFINITE RISK Duration or Total Time Spent w: 25 Vitals & review Data Vital Sign - Last 24 Hours 10/07/18 10/07/18 10/07/18 10/07/18 18:41 18:41 19:22 19:26 Temp 98.9 98.9 98.9 98.9 Pulse 86 86 87 78 Resp 24 24 18 18 Pulse Ox 89 89 97 O2 Delivery Room Air 10/07/18 10/07/18 10/07/18 10/07/18 20:21 21:54 22:00 22:01 Pulse 83 79 Resp 22 18 20 B/P (MAP) 124/67 Pulse Ox 94 94 O2 Delivery Nasal Canula O2 Flow Rate 2.00 10/07/18 10/07/18 22:03 22:11 Pulse 81 81 Resp 20 20 Pulse Ox 93 93 O2 Delivery Nasal Cannula O2 Flow Rate 2.00 Laboratory Tests Test 10/07/18 19:05 White Blood Count 8.9 10^3/uL Red Blood Count 5.30 10^6/uL Hemoglobin 16.5 g/dL Hematocrit 48.6 % Mean Corpuscular Volume 91.7 fL Mean Corpuscular Hemoglobin 31.1 pg Mean Corpuscular Hemoglobin Concent 34.0 g/dL Red Cell Distribution Width 15.0 % Platelet Count 263 10^3/uL Mean Platelet Volume 9.4 fL Neutrophils (%) (Auto) 41.2 % Lymphocytes (%) (Auto) 43.0 % Monocytes (%) (Auto) 11.3 % Neutrophils # (Auto) 3.7 10^3/uL Lymphocytes # (Auto) 3.8 10^3/uL Monocytes # (Auto) 1.0 10^3/uL Absolute Immature Granulocyte (auto 0.01 10^3 u/L Eosinophils % 3.7 % Basophils % 0.7 % Basophils # 0.1 10^3/uL Eosinophil Count 0.3 10^3/uL Sodium Level 137 mmol/L Potassium Level 3.9 mmol/L Chloride Level 102.0 mmol/L Carbon Dioxide Level 26.3 mmol/L Anion Gap 12.6 Blood Urea Nitrogen 14 mg/dL Creatinine 0.70 mg/dL Estimated GFR () 105.1 BUN/Creatinine Ratio 20.0 Glucose Level 89 mg/dL Calcium Level 9.0 mg/dL Total Bilirubin 0.4 mg/dL Aspartate Amino Transf (AST/SGOT) 19 U/L Alanine Aminotransferase (ALT/SGPT) 29 U/L Alkaline Phosphatase 76 U/L Total Creatine Kinase 61 U/L Troponin I < 0.02 ng/mL Pro-B-Type Natriuretic Peptide 31 pg/mL Total Protein 7.8 g/dL Albumin 3.4 g/dL Globulin 4.4 Percent Immature Gran (Cell Imm) 0.10 % Helicobacter pylori Screen NEGATIVE Sepsis Infection Criteria Pres: None LEVEL 1 SEPSIS INFECTION CRITE: ABX Therapy, Cough/Shortness of Breath LEVEL 2-SIRS (LIST ALL THAT AP: [id number] Cardiovascular Evidence: Not Assessed or None Hematologic Evidence: None/Not assessed Hepatic Evidence: None/Not assessed Metabolic Evidence: None/Not assessed Neurological Evidence: None/Not assessed Respiratory Evidence: Need for O2 to keep>90%, O2 SAT<90room air Renal Evidence: None/Not assessed O2 Sat by Pulse Oximetry: 95 Respiratory End-tidal CO2: 96 Oxygen Flow Rate: 2.50 Assessment/Plan Assessment/Plan Assessment/Plan 1.) SOB - Secondary to multiple etiologies, mostly COPD exacerbation and flare- up of her Interstitial Lung Disease. Sx overall continuing to improve. - Home today on home O2. - May benefit from Morphine at home for air hunger. - Also needs a sleep study as an outpt. 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 - Cont O2 24/. - Change to PO Prednisone and slowly taper. - Nebulizer tx here and outpt. - MUST stop smoking. 3.) Hypoxia - Secondary to ILD, COPD, Probably SHAZIA, Obesity Hypoventilation Syndrome and continued smoking. - Cont tx as above. - Echo results pending. 4.) COPD Exacerbation with Obesity Hypoventilation Syndrome - Sx slowly improving. - Ween steroids. - Continue Nebulizer. - Home O2 24/7. - Counseled extensively on the benefit she would get from weight loss. 5.) Generalized Weakness - Continue small increases in ambulation to try and improve conditioning. - Would benefit from HH PT at home. 6.) Increased TSH - Subclinical hypothyroidism. FT4 good. 7.) Leukocytosis - Secondary to steroids. Improving. 8.) Erythrocytosis - Secondary to chronic lung disease and years of smoking. - May also benefit from scheduled phlebotomy. - As above, must stop smoking. JARRETT PLUMMER MD Oct 12, 2018 08:07
[2018-10-12] MEDS: PLAQUENIL PO SCH (08:21)
[2018-10-12] MEDS: NICOTINE 21MG PATCH TD SCH (08:21)
[2018-10-12] MEDS: PROTONIX PO SCH (08:21)
[2018-10-12] MEDS: ASPIRIN EC PO SCH (08:21)
[2018-10-12] MEDS: NEURONTIN PO SCH (08:21)
[2018-10-12] MEDS: SKELAXIN PO PRN (08:22)
[2018-10-12] MEDS: DUONEB 0.5 MG-3 MG/3 ML SOLN IH SCH (09:12)
[2018-10-12] MEDS ORDERED: PRED20TA PO (10:06)
[2018-10-12] MEDS ORDERED: AZIT250T14 PO (10:06)
[2018-10-12] MEDS: ZITHROMAX 500 MG in NS 250ML 250 ML IV SCH (11:00)
[2018-10-12 11:50] VITALS: BP 136/79
[2018-10-12 14:00] VITALS: BP 136/79
--- NOTE | 2018-10-12 20:30 | DSH ---
DATE OF DISCHARGE: 10/12/2018 ADMITTING DIAGNOSES: 1. Shortness of breath. 2. Hypoxia. 3. 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 4. Possible atypical pneumonia. 5. Erythrocytosis. 6. Chronic obstructive pulmonary disease exacerbation. 7. Morbid obesity. 8. Continued tobacco use. DISCHARGE DIAGNOSES: 1. Shortness of breath secondary to multiple etiologies. 2. Chronic obstructive pulmonary disease exacerbation. 3. Interstitial lung disease. 4. Hypoxia. 5. Rheumatoid arthritis. 6. Generalized weakness. 7. Morbid obesity. 8. Tobacco use. 9. Erythrocytosis. DISCHARGE MEDICATIONS: 1. Prednisone 40 mg, tapered to 10 mg over 2 weeks. 2. Azithromycin 250 mg p.o. daily for 5 days. 3. DuoNebs 3 times daily and every 4 hours p.r.n. 4. Resume previous home medication. DISCHARGE DISPOSITION: Home. FOLLOW UP: Follow up with Dr. Blanco in 1-2 weeks. HOSPITAL COURSE: This is a 57-year-old male who was admitted to [facility] on the above date with shortness of breath and hypoxia. She has chronic interstitial lung disease, likely secondary to rheumatoid arthritis. She had not been wearing her oxygen 24 hours a day and she continues to smoke. Upon arrival, her chest x-ray was initially concerning for community-acquired pneumonia and she was started on empiric antibiotics. Over the course of the next 48 hours, I ruled out community-acquired pneumonia. Her x-ray showed only changes consistent with interstitial lung disease. Her vital signs remained stable. I did keep her on antibiotics for COPD exacerbation as she had significant wheezing and prolonged expiratory phase and is a lifelong smoker. I also had her on high dose IV corticosteroids for interstitial lung disease and COPD exacerbation. Echocardiogram was performed on 10/12/2018 to evaluate for any right heart disease or congestive heart failure. The patient was weak and severely deconditioned and would get very weak and severely hypoxic with ambulation. Over the course of the next 48 hours, this improved significantly. She was able to ambulate much better when she was wearing her oxygen after 3 days of treatment. I counseled her extensively on smoking cessation and the patient is planning on following up with me in the next 1-2 weeks. She was discharged to home in stable condition with instructions to wear her oxygen 24 hours daily. Santos Blanco MD DR: MULUGETA/carmen JOB# [id number]
--- NOTE | 2018-10-14 14:14 | ECHO ---
DATE OF SERVICE: INDICATIONS: A 57-year-old female with congestive heart failure. PRIMARY PHYSICIAN: Dr. Blanco. FINDINGS: Mitral valve shows normal motion, normal E to A ratio, normal aorta, normal aortic valve opening, tricuspid valve with normal motion with mild tricuspid regurgitation, 2 meters velocity. Right ventricular size is normal. Right atrium is mildly enlarged to 4.8 cm, left atrium is enlarged to 5.25 cm in 4-chamber view, end-diastolic volume is not significant, is only 50 mL. Left ventricle is normal in size around 5.17 cm, end-diastolic dimension 3.13 cm and end-systolic dimension early top normal LV wall thickness, ejection fraction 72%, mild increase in diastolic volume to 124, IVC is top normal size. Hence, early LVH, intact LV systolic function, mild left atrial enlargement and no valvular abnormality. Laxmichand MD Charity DR: GISSEL/carmen JOB# [id number]
== END 2018-10-12 14:00 | disposition home or self-care (01) | DRG 196 ==
LOC: ER 18:38 → MS 22:36 → EDPENDDISDT 10-12 10:10 → EDPENDDISTM 10-12 10:10
PROVIDERS: ADMIT Internal Medicine; ATTEND Internal Medicine
DX: J84.9 Interstitial pulmonary disease, unspecified (principal); J96.21 Acute and chronic respiratory failure with hypoxia; J44.1 Chronic obstructive pulmonary disease with (acute) exacerbation; Z68.41 Body mass index [BMI] 40.0-44.9, adult; E66.2 Morbid (severe) obesity with alveolar hypoventilation; M06.9 Rheumatoid arthritis, unspecified; D75.1 Secondary polycythemia; I10 Essential (primary) hypertension; E03.9 Hypothyroidism, unspecified; K21.9 Gastro-esophageal reflux disease without esophagitis; T38.0X5A Adverse effect of glucocorticoids and synthetic analogues, initial encounter; G62.9 Polyneuropathy, unspecified; F17.210 Nicotine dependence, cigarettes, uncomplicated; Z99.81 Dependence on supplemental oxygen; Z88.8 Allergy status to other drugs, medicaments and biological substances; Z88.2 Allergy status to sulfonamides; Z88.9 Allergy status to unspecified drugs, medicaments and biological substances; Z82.5 Family history of asthma and other chronic lower respiratory diseases; Z80.8 Family history of malignant neoplasm of other organs or systems; Z80.0 Family history of malignant neoplasm of digestive organs; Z82.3 Family history of stroke; Z71.3 Dietary counseling and surveillance; Y92.89 Other specified places as the place of occurrence of the external cause
CPT/HCPCS: 36415; 71046; 71275; 80053; 82550; 83036; 83880; 84145; 84439; 84443; 84484; 85025; 85027; 85610; 85730; 86677; 93005; 93307; 94640; 99285; G0378; J0456; J1100; J1200; J1940; J2920; J2930; J7050; J7620; Q9965

== ENCOUNTER → 2019-01-15 | Outpatient (CLI) | payer BC ==
[~2019-01-15] MED LIST changes: +BUDE0.5A NEB; +LANS30CA PO; +[UNRECOGNIZED DRUG - CODE] PO
[2019-01-15 12:44] LABS: BASOPHIL % 0.3 % (0.0-0.2); EOSINOPHIL # 0.1 10^3/uL (0.0-0.2); EOSINOPHIL % 0.4 % (0.0-5.0); HEMOGLOBIN 16.4 g/dL (12.0-15.0); LYMPHOCYTES # 2.4 10^3/uL (1.0-4.8); LYMPHOCYTES % 17.3 % (24.0-44.0); MEAN CELL HGB 31.5 pg (26-34); MEAN CELL HGB CONCENTRATION 34.1 g/dL (33-37); MEAN CORP VOLUME 92.3 fL (78-100); MEAN PLATELET VOLUME 9.6 fL (7.8-11.0); MONOCYTES # 0.6 10^3/uL (0.3-0.8); MONOCYTES % 4.3 % (5.0-12.0); NEUTROPHIL # 10.7 10^3/uL (1.8-7.7); NEUTROPHILS % 77.3 % (41.0-85.0); RED CELL DISTRIBUTION WIDTH 15.8 % (11.5-14.5); WHITE BLOOD CELL 13.9 10^3/uL (4.5-11.0)
[2019-01-15 13:05] LABS: CALCIUM 9.3 mg/dL (8.4-10.5); CARBON DIOXIDE 27.1 mmol/L (20.0-32)
== END | disposition home or self-care (01) ==
LOC: LAB 12:29
PROVIDERS: ATTEND Internal Medicine Rheumatology
DX: M05.89 Other rheumatoid arthritis with rheumatoid factor of multiple sites (principal)
CPT/HCPCS: 36415; 80053; 85025; 85651; 86140

== ENCOUNTER → 2019-12-09 | Outpatient (CLI) | payer BC ==
--- NOTE | 2019-12-09 14:21 | DIREP ---
PROCEDURE:CHEST 2 VIEWS COMPARISON:[facility], CR, XRAY CHEST 2 VWS, 10/10/2018, 05:48 AM. [facility], CR, XRAY CHEST 2 VWS, 10/07/2018, 06:42 PM. [facility], , CHEST 1 VIEW, 06/25/2011, 03:09 AM. INDICATIONS:COPD FINDINGS: LUNGS/PLEURA:Interstitial prominence throughout, similar to previous examination. This is in keeping with chronic fibrosis. No focal consolidation. No effusion is identified. No pneumothorax VASCULATURE:Normal. Unremarkable pulmonary vasculature. CARDIAC:Normal. No cardiac silhouette abnormality or cardiomegaly. MEDIASTINUM:Normal. No visible mass or adenopathy. BONES:Normal. No fracture or visible bony lesion. OTHER:Negative. CONCLUSION:Fibrotic changes of the lungs, not changed when compared with previous examination. No acute findings are suspected. Dictated by: González Martell MD on 12/09/2019 at 02:29 PM
== END | disposition home or self-care (01) ==
LOC: RAD 13:47
PROVIDERS: ATTEND Internal Medicine
DX: J44.1 Chronic obstructive pulmonary disease with (acute) exacerbation (principal)
CPT/HCPCS: 71046

== ENCOUNTER → 2020-02-28 | Outpatient (CLI) | payer BC ==
[~2020-02-28] MED LIST changes: -ASPI-484 PO; +ASPI-485 PO
--- NOTE | 2020-03-02 14:44 | DIREP ---
PROCEDURE: BONE DENSITY AXIAL INDICATIONS: OSTEOPENIA COMPARISON: None. FINDINGS: Proximal right femur bone mineral density (BMD) (g/cm2): 0.734 Right Femur T-score (standard deviation relative to young adult mean BMD):-2.2 Right Femur Z-score (standard deviation relative to age-matched control group):- 1.8 Proximal left femur bone mineral density (BMD) (g/cm2): 0.689 Left Femur T-score (standard deviation relative to young adult mean BMD):--2.5 Left Femur Z-score (standard deviation relative to age-matched control group):- 2.2 Lumbar bone mineral density (BMD) (g/cm2): 0.839 Lumbar T-score (standard deviation relative to young adult mean BMD):-2.9 Lumbar Z-score (standard deviation relative to age-matched control group):-3.1 Change since prior exam (%): Femur: Not applicable. Spine: Not applicable. Change since oldest prior exam (%): Femur: Not applicable. Spine: Not applicable. CONCLUSION: Osteoporosis Major Osteoporotic 10 Year Fracture Risk = 20.3 % Hip Fracture 10 Year Risk = 4.2 % *Note: The Z-score is provided for informational purposes. The T-score is preferable for clinical decisions. When comparing exams, a change of >4% is considered statistically significant. SUGGESTED RECOMMENDATIONS: Normal & Osteopenia: Consideration should be given to use of calcium supplementation, daily multiple vitamins and adequate exercise, as preventive measures against osteoporosis, if clinically indicated. Osteoporosis & Severe Osteoporosis: In addition to the above, consideration should be given to medical therapy against osteoporosis, if clinically indicated. Dictated by: Maurisio Elizondo DO on 02/28/2020 at 03:21 PM YNE
== END | disposition home or self-care (01) ==
LOC: BD 13:49
PROVIDERS: ATTEND Internal Medicine Rheumatology
DX: M85.89 Other specified disorders of bone density and structure, multiple sites (principal)
CPT/HCPCS: 77080

== ENCOUNTER 2020-05-14 17:29 | Emergency (ER) ==
[~2020-05-14] VITALS: Ht 162.6 cm; Wt 104.3 kg
[2020-05-14 17:48] VITALS: BP 116/76
--- NOTE | 2020-05-14 17:53 | NUR ---
ARRIVAL PATIENT ARRIVED TO ED6 VIA W/C WITH FAMILY, C/O OF LEFT SIDE PAIN,TAILBONE, AND BACK PAIN FROM A FALL ON FRIDAY, PATIENT STATES SHE WAS ATTEMPTING TO WALK DOWN A SET OF STAIRS IN THE DARK ON [place] AND FELL, PATIENT CONTINUES TO HAVE PAIN AND DECIDED TO COME TO THE ED FOR EVAL. PAIN WITH RANGE OF MOTION, DENIES LOC, HERE FOR FURTHER EVAL.
[2020-05-14] MEDS ORDERED: MORPHINE SULFATE IM ONE (18:00)
[2020-05-14] MEDS ORDERED: DUO 0.5-3(2.5) MG/3 ML IH STA (18:01)
[2020-05-14] MEDS ORDERED: MORPHINE SULFATE ONE (18:01)
--- NOTE | 2020-05-14 18:05 | ER.PDOC ---
General Chief Complaint: Lower Back Pain or Injury Stated Complaint: FALL Time seen by MD: 19:50 Source: patient Exam Limitations: no limitations History of Present Illness Initial Comments patient slipped on steps last friday and fell injuring her neck and back and ribs Where: home Severity: moderate Injuries/Pain Location: head, neck, chest, back Context: Slipped Loss of Consciousness: No Loss of Consciousness Allergies: Coded Allergies: iodine (Verified Allergy, Severe, EXTREME HEAT, SWELLING, SNEEZING, 11/13/17) IV INJECTION 1974 PT VOICED BEING ABLE TO EAT SHELLFISH sulfadiazine (Verified Allergy, Severe, DIFFICULTY BREATHING, LOW O2 STATS, 11/13/17) MEDS Active Scripts Prednisone (PREDNISONE) 20 Mg Tablet, 10 MG PO DAILY24 for 30 Days Take 4 po daily for 7 days 3 po daily for 7 days 2 po daily for 7 days Remain on 1 po daily thereafter. Prov:JARRETT PLUMMER MD 10/12/18 Azithromycin (AZITHROMYCIN) 250 Mg Tablet, 250 MG PO DAILY24 for 5 Days Prov:JARRETT PLUMMER MD 10/12/18 Budesonide (PULMICORT) 0.5 Mg/2 Ml Ampul.neb, 0.5 MG IH BID, #30 Prov:OZZIE LEUNG MD 10/17/14 Reported Medications Albuterol Sulfate (ALBUTEROL SULFATE) 2.5 Mg/0.5 Ml Vial.neb, 1 VIAL NEB BID, #120 VIAL 5 Refills 10/08/18 Hydroxychloroquine Sulfate (HYDROXYCHLOROQUINE SULFATE) 200 Mg Tablet, 1 TAB PO BID, #180 TAB 1 Refill 10/07/18 Budesonide (BUDESONIDE) 0.5 Mg/2 Ml Ampul.neb, 1 VIAL NEB BID, #120 MILLILITER 3 Refills 10/07/18 Lansoprazole (LANSOPRAZOLE) 30 Mg Capsule.dr, 1 CAP PO DAILY, #30 CAP 5 Refills 10/07/18 Gabapentin (GABAPENTIN) 300 Mg Capsule, 1 CAP PO TID, #90 CAP 5 Refills 10/07/18 Aspirin (ASPIR 81) 81 Mg Tablet.dr, 1 TAB PO DAILY, #30 TAB 11/17/17 Albuterol Sulfate (ALBUTEROL SULFATE) 2.5 Mg/0.5 Ml Vial.neb, 1 VIAL NEB Q6 PRN for SHORTNESS OF BREATH, #120 VIAL 5 Refills 11/13/17 Metaxalone (METAXALONE) 800 Mg Tablet, 800 MG PO TID PRN for PAIN, TABLET 05/10/14 Past Medical History Medical History: congestive heart failure, COPD, other Surgical History: appendectomy, cholecystectomy, , hysterectomy, tonsillectomy, other Social History Alcohol Use: none Drug Use: none Review of Systems Constitutional: denies chills, denies fever Ears, Nose, Mouth, Throat: denies ear discharge Respiratory: denies cough Cardiovascular: denies palpitations Gastrointestinal: denies abdominal pain, denies diarrhea, denies vomiting Genitourinary: denies frequency, denies hematuria Musculoskeletal: denies neck pain Skin: denies rash Physical Exam General Appearance: No Apparent Distress, WD/WN Head: No Evidence of Injury Eyes: bilateral eye normal inspection, bilateral eye PERRL, bilateral eye EOMI Ears, Nose, Mouth, Throat: Hearing Grossly Normal Neck: Tenderness Cardiovascular/Respiratory: Regular Rate, Rhythm, Wheezing Gastrointestinal: Non Tender Back: Other Extremities: No Evidence of Injury Neurologic/Psychiatric: prn physical therapist II-XII NML as Tested, No Motor/Sensory Deficits, Alert, Normal Mood/Affect, Oriented x 3 Comments pain to palpation post cervical and thoracic back and lumbar and pain in the left ribs, no noted contusion, no abd pain to palpation, normal strength and sensation all extremities normal reflexes noted. [place] Coma Score Best Eye Response: (4) Open Spontaneously Best Verbal Response: (5) Oriented Best Motor Response: (6) Obeys Commands Results/Orders Results/Orders Orders - JAMES GALLEGOS DO Fentanyl Citrate/Pf (Sublimaze) (05/14/20 19:09) Ondansetron Hcl/Pf (Zofran) (05/14/20 19:09) Ondansetron Hcl/Pf (Zofran) (05/14/20 19:14) Fentanyl Citrate/Pf (Sublimaze) (05/14/20 19:14) Diazepam (Valium) (05/14/20 19:33) Diazepam (Valium) (05/14/20 19:35) Xr Ribs Lt W/Cxr (05/14/20 ) Vital Signs Date Time Temp Pulse Resp B/P (MAP) Pulse Ox O2 Delivery O2 Flow Rate FiO2 05/14/20 18:45 103 20 93 05/14/20 18:13 99 22 93 05/14/20 17:48 99.8 114 22 05/14/20 17:48 99.8 114 22 116/76 (89) 88 Nasal Canula 3.00 05/14/20 17:48 99.8 114 22 88 Administered Medications Medications (Trade) Dose Ordered Sig/Tristan Route PRN Reason Start Time Stop Time Status Last Admin Dose Admin Albuterol/ Ipratropium (Duo 0.5-3(2.5) Mg/3 ml) 3 ml STAT STAT IH 05/14/20 18:01 05/14/20 18:02 UNV 05/14/20 18:42 3 ML Diazepam (Valium) 5 mg STAT STAT IV 05/14/20 19:33 05/14/20 19:34 DC 05/14/20 20:01 5 MG Fentanyl Citrate (Sublimaze) 100 mcg STAT STAT IV 05/14/20 19:09 05/14/20 19:12 DC 05/14/20 19:18 100 MCG Morphine Sulfate (Morphine Sulfate) 4 mg STAT ONCE IM 05/14/20 18:00 05/14/20 18:01 DC 05/14/20 18:06 4 MG Ondansetron HCl (Zofran) 4 mg STAT STAT IV 05/14/20 19:09 05/14/20 19:12 DC 05/14/20 19:20 4 MG Progress Progress endorsed to dr gallegos at 1900 hours. JRhodesDO: assumed care of patient from Dr. Blanchard at shift change. Patient was unable to tolerate lying on CT table after 4mg Morphine + 100 mcg fentanyl + 5 mg valium. She adamantly refused this study. She stated her ribs were the worst source of her pain and conceded she would submit to rib xrays and nothing more. It has been 4 days since her fall and she has exhibited no neurologic deficit, no numbness/weakness/tingling. She states to me her neck and back are not really hurting--just her ribs. EKG/XRAY/CT/US XRAY Comments: lung fibrosis; no acute rib fractures seen ER DEPART Departure Time of Disposition: 22:04 Disposition: 01 HOME, SELF-CARE Impression: Primary Impression: Fall Additional Impressions: Contusion of rib Lung fibrosis Condition: Improved Patient Instructions: Rib Contusion Referrals: JARRETT PLUMMER MD (PCP) PRIMARY CARE PROVIDER Additional Instructions: Return to ER if you experience any difficulty breathing or swallowing, or for any emergent concerns. Follow up with your doctor this week for reevaluation. Alternate Tylenol and Motrin per package instructions every 4 hours as needed for pain. You may augment pain control with mild narcotic as prescribed. Duration or Time Spent with Pa: 25 min Problem Qualifiers Primary Impression: Fall Encounter type: initial encounter Qualified Codes: W19.XXXA - Unspecified fall, initial encounter Additional Impressions: Contusion of rib Encounter type: initial encounter Laterality: left Qualified Codes: S20.212A - Contusion of left front wall of thorax, initial encounter SCOTT BLANCHARD MD May 14, 2020 18:05 JAMES GALLEGOS DO May 14, 2020 22:06
[2020-05-14] MEDS ORDERED: DUO 0.5-3(2.5) MG/3 ML IH ONE (18:08)
[2020-05-14 18:45] VITALS: BP 121/74
[2020-05-14] MEDS ORDERED: ZOFRAN IV STA (19:09)
[2020-05-14] MEDS ORDERED: SUBLIMAZE IV STA ×2 (19:09→22:11)
[2020-05-14] MEDS ORDERED: ZOFRAN ONE (19:14)
[2020-05-14] MEDS ORDERED: SUBLIMAZE ONE ×2 (19:14→22:30)
[2020-05-14 19:20] VITALS: BP 118/68
--- NOTE | 2020-05-14 19:30 | NUR ---
CT PATIENT TAKEN BACK TO CT AFTER IV INSERTION FOR IV NARCOTIC PAIN MANAGMENT. PATIENT STATES "I AM FEELING GOOD."
[2020-05-14] MEDS ORDERED: VALIUM IV STA (19:33)
[2020-05-14] MEDS ORDERED: VALIUM ONE (19:35)
[2020-05-14 20:30] VITALS: BP 127/81
--- NOTE | 2020-05-14 21:12 | DIREP ---
PROCEDURE:XRAY RIBS W/PA CHEST 3VWS-LT COMPARISON:[facility], CR, XRAY CHEST 2 VWS, 12/09/2019, 01:[address] [facility], CR, XRAY CHEST 2 VWS, 10/10/2018, 05:[address] [facility], CR, XRAY CHEST 2 VWS, 10/07/2018, 06:42 PM. INDICATIONS:FALL 4 DAYS AGO, RIB PAIN TECHNIQUE:PA chest and multiple views of the left ribs FINDINGS: LEFT RIBS:No displaced rib fractures. LUNGS/PLEURA: No focal consolidation or overt edema. Linear densities of the left lower lung which may represent subsegmental atelectasis or scarring. Background of coarse interstitial lung markings. CARDIAC: Normal in size for technique. MEDIASTINUM: Midline in position. BONES: No aggressive osseous lesions. OTHER: No additional findings. CONCLUSION: 1. No displaced rib fracture seen. 2. Background of coarse prominent interstitial lung markings which may be secondary to fibrotic disease, as suggested on prior CT of the chest. Dictated by: Tani Nelson MD on 05/14/2020 at 09:08 PM
[2020-05-14 21:30] VITALS: BP 122/64
[2020-05-14 22:45] VITALS: BP 120/71
== END 2020-05-14 22:50 | disposition home or self-care (01) ==
LOC: ER 17:29
DX: S20.212A Contusion of left front wall of thorax, initial encounter (principal); J84.10 Pulmonary fibrosis, unspecified; Z90.49 Acquired absence of other specified parts of digestive tract; Z90.710 Acquired absence of both cervix and uterus; Z90.89 Acquired absence of other organs; W10.9XXA Fall (on) (from) unspecified stairs and steps, initial encounter; Y93.89 Activity, other specified; Y92.098 Other place in other non-institutional residence as the place of occurrence of the external cause; Y99.8 Other external cause status
CPT/HCPCS: 71101; 94640; 96372; 96374; 96375; 96376; 99284; J2270; J2405; J3010 ×2; J3360; J7620; 99285

== ENCOUNTER → 2021-06-08 | Outpatient (CLI) | payer BC ==
--- NOTE | 2021-06-09 02:29 | PCM.ECHO ---
APPROVED REPORT EXAM: Comprehensive 2D, Doppler, and color-flow Echocardiogram. Patient Location: OUT-PATIENT Indications Congestive Heart Failure 2D Dimensions LVOT Diameter 2.25 (1.8-2.4cm) LVEF(%) 67.19 (>50%) M-Mode Dimensions RVDd 1.55 (2.1-3.2cm) Left Atrium(MM) 4.20 (2.5-4.0cm) IVSd 0.95 (0.7-1.1cm) Aortic Root 2.65 (2.2-3.7cm) LVDd 4.75 (4.0-5.6cm) Aortic Cusp Exc 1.30 (1.5-2.0cm) PWd 0.75 (0.7-1.1cm) MV EPSS 0.78 (<0.5cm) IVSs 1.30 cm FS (%) 27.25 % LVDs 3.45 (2.0-3.8cm) ESV(Teich) 50.11 ml PWs 1.15 cm LVEF(%) 53.00 (>50%) Volumes Biplane 2D LV Volumes Biplane 2D LA Volumes LVEDv A4C 91.93 mL LA ESV Index LVESv A4C 30.16 mL Aortic Valve AoV Peak Yasir. 1.05 m/s AoV VTI 23.45 cm AO Peak GR. 4.40 mmHg AO Mean GR. 3.05 mmHg LVOT VTI 21.79 cm LVOT Peak Yasir. 0.90 m/s ROBERT(VTI)/BSA 3.69 cm2/m2 ROBERT (VTI) 3.69 cm2 Mitral Valve MV E Velocity 0.65m/s MR Peak Gr. 7.85mmHg MV A Velocity 0.75m/s TDI Lateral E' P. V 0.19m/s Medial E' P. V 0.08m/s Pulmonary Valve PV Peak Velocity 0.85m/s PV Peak Grad. 3.15mmHg RVOT VTI 16.80cm Tricuspid Valve TR P. Velocity 2.50m/s RAP ESTIMATE 10.00mmHg TR Peak Gr. 25.42mmHg RVSP 35.42mmHg LEFT VENTRICLE The left ventricle is normal size. The left ventricular systolic function is normal. The left ventricular ejection fraction is within the normal range. There is normal left ventricular wall thickness. There is normal LV segmental wall motion. There is no ventricular septal defect visualized. No left ventricle thrombus noted on this study. LVEF is 60-65%. RIGHT VENTRICLE The right ventricle is normal size. The right ventricular systolic function is normal. There is normal right ventricular wall thickness. ATRIA The left atrium size is normal. The right atrium size is normal. The interatrial septum is intact with no evidence for an atrial septal defect. AORTIC VALVE The aortic valve is normal in structure. There is no aortic valvular stenosis. No aortic regurgitation is present. There is no aortic valvular vegetation. MITRAL VALVE The mitral valve is normal in structure. There is no mitral valve stenosis. Mild mitral regurgitation. There is no evidence of mitral valve vegetations. TRICUSPID VALVE The tricuspid valve is normal in structure. There is no tricuspid valve stenosis. Mild tricuspid regurgitation. There is no tricuspid valve vegetations. PULMONIC VALVE Pulmonic valve is not well visualized. There is no pulmonic valvular stenosis. There is no pulmonic valvular regurgitation. GREAT VESSELS The aortic root is normal in size. Pulmonary artery is not well visualized. Aortic arch is not well visualized. The IVC is normal in size and collapses >50% with inspiration. PERICARDIUM There is no pericardial effusion. Other Information Study Quality: Fair <Conclusion> The left ventricular systolic function is normal. LVEF is 60-65%. Mild mitral regurgitation. Mild tricuspid regurgitation. Electronically signed by : SHAYLA CASH. 06/09/2021 02:28:40
== END | disposition home or self-care (01) ==
LOC: RT 13:58
PROVIDERS: ATTEND Internal Medicine
DX: I08.1 Rheumatic disorders of both mitral and tricuspid valves (principal); I50.9 Heart failure, unspecified
CPT/HCPCS: 93306

== ENCOUNTER → 2021-09-17 | Outpatient (CLI) | payer BC ==
--- NOTE | 2021-09-17 14:31 | DIREP ---
PROCEDURE:BONE DENSITY PERIPHERAL INDICATIONS:SENILE OSTEOPOROSIS COMPARISON:None. FINDINGS: SUMMARY Region BMD(g/cm^2) T-Score change from prior exam L1 through L40.953-1.9 Left proximal femur0.740-2.1 Total hip left0.7651.9 Right proximal femur0.826-1.5 Total hip right0.777-1.8 CONCLUSION:Osteopenia Major Osteoporotic 10 Year Fracture Risk = 19.5 % Hip Fracture 10 Year Risk = 3.1 % SUGGESTED RECOMMENDATIONS: Normal & Osteopenia:Consideration should be given to use of calcium supplementation, daily multiple vitamins and adequate exercise, as preventive measures against osteoporosis, if clinically indicated. Osteoporosis & Severe Osteoporosis:In addition to the above, consideration should be given to medical therapy against osteoporosis, if clinically indicated. Dictated by: Maurisio Elizondo DO on 09/17/2021 at 02:29 PM
== END | disposition home or self-care (01) ==
LOC: BD 13:16
PROVIDERS: ATTEND Internal Medicine Rheumatology
DX: M81.0 Age-related osteoporosis without current pathological fracture (principal)
CPT/HCPCS: 77080